=== PATIENT | male | born 1955 | race African-American/Black ===

== ENCOUNTER 2017-07-01 05:48 | Emergency (ER) | payer MEDICARE, MEDICAID ==
[2017-07-01 07:54] LABS: Bilirubin Negative (Negative); Blood, Urine Large (Negative); Glucose, Urine (Dipstick) Negative (Negative); Leukocyte Trace (Negative); Nitrite Negative (Negative); Protein, Urine (Dipstick) 100 mg/dL (Neg-Trace); Urobilinogen 0.2 mg/dL (0.2-1.0)
[2017-07-01 07:56] LABS: Clarity Turbid (Clear)
[2017-07-01 08:15] LABS: RBC/HPF GREATER THAN 50-TNTC HPF (0-3); Squamous Epithelial 0-3 HPF (0-3); Yeast-All Forms None Seen HPF (None Seen)
[2017-07-01 08:16] LABS: Bacteria/HPF None Seen HPF (None Seen); Hyaline Casts/LPF 0-3 HYALINE CAST LPF (0-3 Hyaline)
== END 2017-07-01 09:28 | disposition home or self-care (01) ==
LOC: ERS 05:48
DX: R31.9 Hematuria, unspecified (principal); Z46.6 Encounter for fitting and adjustment of urinary device; I69.991 Dysphagia following unspecified cerebrovascular disease; R13.10 Dysphagia, unspecified; I10 Essential (primary) hypertension; E78.5 Hyperlipidemia, unspecified; K21.9 Gastro-esophageal reflux disease without esophagitis; F32.9 Major depressive disorder, single episode, unspecified; Z79.899 Other long term (current) drug therapy
CPT/HCPCS: 51702; 81003; 81015; 87077; 87086; 87186

== ENCOUNTER 2018-07-07 07:08 | Observation (INO) | payer MEDICARE, MEDICAID ==
[2018-07-07] MEDS ORDERED: diphenhydrAMINE 50 MG/ML VIAL ONE (07:25)
[2018-07-07] MEDS ORDERED: Famotidine/PF 20 mg/2ml Vial ONE (07:25)
[2018-07-07] MEDS ORDERED: methylPREDNISolone Sod Succ/PF 125 MG/2 ML VIAL ONE (07:25)
[2018-07-07 07:38] LABS: #Basophils 0.1 thou/uL (0.0-0.2); #Eosinphils 0.3 thou/uL (0.0-0.7); #Lymphocytes 2.1 thou/uL (1.20-3.40); #Monocytes 0.8 thou/uL (0.11-0.59); #Neutrophils 10.2 thou/uL (1.40-6.50); %Basophils 0.4 % (0.0-1.0); %Eosinophils 2.5 % (0.0-10.0); %Lymphocytes 15.9 % (21.0-51.0); %Monocytes 5.7 % (0.0-10.0); %Neutrophils 75.6 % (42.0-75.0); Hemoglobin 12.5 g/dL (14.0-18.0); Mean Corpuscular HGB CONC 32.1 g/dL (32.0-36.0); Mean Corpuscular Hemoglobin 27.9 pg (27.0-31.0); Mean Corpuscular Volume 86.9 fL (78.0-98.0); Mean Platelet Volume 6.2 fL (7.4-10.4); Platelet Count 272 thou/uL (130-400); RBC Distribution Width 12.7 % (11.5-14.5); Red Blood Cell (RBC) Count 4.48 mill/uL (4.70-6.10); White Blood Cell (WBC) Count 13.5 thou/uL (4.8-10.8)
[2018-07-07] MEDS ORDERED: Lidocaine 1% w/Epinephrine 1:100K 20 ML VIAL ONE (07:46)
[2018-07-07] MEDS ORDERED: Sodium Chloride For Inhalation 0.9% 3 ML NEB ONE (07:53)
[2018-07-07 07:59] LABS: Actual Bicarbonate (HCO3a) 25.7 mEq/L (22-28); Analyzer IN Cardio ER; Base Excess (BEa) 0.5 mEq/L (-2.0 to +3.0); CO2 Tension 43.8 mmHg (35.0-45.0); Calcium, Ionized 1.11 mmol/L (1.12-1.30); Carboxyhemoglobin (COHb) 0.2 gm% (0.0-3.0); Hemoglobin (Hb) 12.8 g/dL (14.0-18.0); O2 Tension (PaO2) 146.6 mmHg (> 80.0); Potassium - ABG Lab 3.92 mmol/L (3.70-5.30); pH, Arterial 7.39 (7.35-7.45)
[2018-07-07 07:59] LABS: ALT (SGPT) 10 U/L (8-55); AST (SGOT) 12 U/L (5-34); Albumin 4.2 g/dL (3.4-4.8); Alkaline Phosphatase 73 U/L (40-150); Anion Gap 14 mmol/L (10-20); BUN (Urea Nitrogen) 12 mg/dL (8.4-25.7); Bilirubin, Total 0.7 mg/dL (0.2-1.2); Calc. Creatinine Clearance 0 mL/min (70-130); Calcium 9.4 mg/dL (7.8-10.44); Carbon Dioxide 26 mmol/L (23-31); Chloride 103 mmol/L (98-107); Estimated GFR-MDRD Greater than 90; Globulin 3.7 g/dL (2.4-3.5); Glucose 93 mg/dL (80-115); Potassium 4.1 mmol/L (3.5-5.1); Protein, Total 7.9 g/dL (5.8-8.1); Sodium 139 mmol/L (136-145)
[2018-07-07 08:01] LABS: Puncture Site LBA
--- NOTE | 2018-07-07 08:45 | RAD ---
2 views of the soft tissues of the neck INDICATION: Abnormal noises made by the patient this morning without recent illness or exposure; hist ory of right-sided deficits following the stroke; nonverbal patient COMPARISON: Chest radiograph dated April 03, 2017 FINDINGS: Prevertebral soft tissues are within normal limits. There is bulky anterior marginal osteop hytes off of C5-6 and C6-7. There is prominent gaseous distention of the nasopharynx, oral cavity, hypopharynx and trachea. The patient is rotated on the AP view slightly limiting the exam. Visualized aspects of the subglottic trachea appear within normal limits. Lung apices are clear. IMPRESSION: Gaseous distention of the upper airway without additional abnormality.
--- NOTE | 2018-07-07 10:12 | CT ---
CT PULMONARY ANGIOGRAM WITH IV CONTRAST AND 3D POST PROCESSING: HISTORY: Chest pain. FINDINGS: No filling defects are seen in the central pulmonary arterial vasculature to suggest central pulmonar y embolism. Peripheral branches cannot be satisfactorily evaluated due to motion artifact. The thor acic aorta is opacified without aneurysmal dilation or dissection. No pleural or pericardial effusio ns are identified. No pneumothoraces, lobar consolidation, or lung masses are seen. There is a calc ified granuloma of the left lower lobe. There are degenerative changes in the spine. Upper abdomina l tomograms demonstrate cysts in the kidneys and cholelithiasis. Exam is somewhat limited due to mot ion artifact. IMPRESSION: 1. No CT evidence of central pulmonary embolism. 2. Cholelithiasis. 3. Bilateral renal cysts. POS: SHERRY
--- NOTE | 2018-07-07 11:18 | ULT ---
EXAM: Right lower extremity venous Doppler US HISTORY: Right lower extremity edema and pain FINDINGS: Grayscale, color-flow, Doppler evaluation, spectral analysis of the right lower extremity venous stru ctures is performed with 2-D imaging. The left common femoral, superficial femoral, popliteal, posterior tibial, proximal greater saphenous and profunda femoral veins are imaged. There is normal luminal compressibility, flow, and augmentation the visualized deep venous structures of the right lower extremity. Incidental note is made of prominent lymph nodes in the right groin. IMPRESSION: No evidence of a deep vein thrombosis in the right lower extremity.
--- NOTE | 2018-07-07 12:10 | PDOC.FPRHP ---
- History of Present Illness Chief Complaint: respiratory distress History of Present Illness: Mr. Fish presents from the [facility] for evaluation after he was making louder "croaking" sounds this morning. He is aphasic, the following history is obtained from medical records and staff. Earlier this morning he was found to have increased breath sounds, reported to staff that he does this when he is in pain. She was able to communicate with him and reported his pain to be in his calf and chest. Otherwise she reports him to be at baseline, focal neurologic deficits and aphasia are residual from CVA in the . Swelling initially reported to tongue, face, lips, eyelids. resolved on our examination. ED Course: CBC, CMP, BNP, trop, ddimer, ABG Rt leg US, CTA, neck Xray racepi, solumedrol, famotidine, benadryl - Allergies/Adverse Reactions Allergies Allergy/AdvReac Type Severity Reaction Status Date / Time IGOR Inhibitors Allergy Severe Swollen Verified 07/07/18 17:47 Lips sulfamethoxazole Allergy Unknown Verified 07/07/18 15:30 [From Bactrim] trimethoprim [From Bactrim] Allergy Unknown Verified 07/07/18 15:30 - Home Medications Medication Instructions Recorded Confirmed Type Acetaminophen [Tylenol Arthritis] 2 tablet PO BID 04/03/17 04/03/17 History Acetaminophen [Tylenol Regular 650 mg PO Q6HR PRN 04/03/17 04/03/17 History Strength] Amlodipine [Norvasc] 10 mg PO DAILY 04/03/17 04/03/17 History Baclofen [Lioresal] 10 mg PO TID 04/03/17 04/03/17 History Bisacodyl [Dulcolax] 10 mg DC DAILY PRN 04/03/17 04/03/17 History Clopidogrel Bisulfate [Plavix] 75 mg PO DAILY 04/03/17 04/03/17 History Furosemide [Lasix] 40 mg PO DAILY 04/03/17 04/03/17 History Ipratropium/Albuterol Sulfate 3 ml NEB Q4HR PRN 04/03/17 04/03/17 History [DuoNeb] Lactobacillus Combination No.4 1 capsule PO DAILY 04/03/17 04/03/17 History [Probiotic] Lisinopril [Prinivil] 20 mg PO DAILY 04/03/17 04/03/17 History Loperamide HCl [Loperamide] 2 mg PO PRN PRN 04/03/17 04/03/17 History Magnesium Hydroxide [Milk of 400 mg PO DAILY 04/03/17 04/03/17 History Magnesia] Magnesium Hydroxide [Milk of 400 mg PO DAILY PRN 04/03/17 04/03/17 History Magnesia] Multivit, Therapeutic [Theragran] 1 tab PO DAILY 04/03/17 04/03/17 History Ondansetron [Zofran ODT] 4 mg PO Q4HR PRN 04/03/17 04/03/17 History Potassium Chloride 20 meq PO DAILY 04/03/17 04/03/17 History Sertraline HCl [Zoloft] 25 mg PO DAILY 04/03/17 04/03/17 History Docusate Calcium [Surfak] 480 mg PO BID cap 04/05/17 Rx Famotidine [Pepcid] 20 mg PO BID tab 04/05/17 Rx Nitrofurantoin Macrocrystal 100 mg PO BID #14 cap 04/05/17 Rx [Macrodantin] Potassium Chloride 20 meq PO DAILY udcup 04/05/17 Rx Sertraline HCl [Zoloft] 25 mg PO DAILY tab 04/05/17 Rx - History PMHx: prior CVA, HTN, BPH, HLD, GERD PSHx: none FHx: none Social: full care at [place] - Review of Systems ROS unobtainable: due to mental status - Vital signs BP: 141/118, Pulse: 109, Resp: 34, Pain: utr, O2 sat: 93 on Room Air, - Physical Exam Constitutional: NAD HEENT: normocephalic and atraumatic, conjunctiva clear, normal nasal mucosa, MMM , oropharynx clear Neck: supple, trachea midline Chest: no lesions Heart: normal S1/S2, no murmurs/rubs/gallops, pulses present, no edema -Heart: tachycardic on exam Lungs: CTAB, no respiratory distress, good air movement, no rales/rhonchi -Lungs: transmitted upper airway sounds Abdomen: soft, non-tender, bowel sounds present, no masses/distention Musculoskeletal: normal structure -Neurological: baseline deficits Skin: no rash/lesions, good turgor Heme/Lymphatic: no unusual bruising or bleeding Psychiatric: normal mood and affect FMR H&P: Results - Labs Result Diagrams: 07/07/18 07:28 07/07/18 07:28 Lab results: WBC 13.5 thou/uL (4.8-10.8) H 07/07/18 07:28 Hgb 12.5 g/dL (14.0-18.0) L 07/07/18 07:28 Hct 38.9 % (42.0-52.0) L 07/07/18 07:28 MCV 86.9 fL (78.0-98.0) 07/07/18 07:28 Plt Count 272 thou/uL (130-400) 07/07/18 07:28 Neutrophils % 75.6 % (42.0-75.0) H 07/07/18 07:28 ABG pH 7.39 (7.35-7.45) 07/07/18 07:59 ABG pCO2 43.8 mmHg (35.0-45.0) 07/07/18 07:59 ABG pO2 146.6 mmHg (> 80.0) H 07/07/18 07:59 Sodium 139 mmol/L (136-145) 07/07/18 07:28 Potassium 4.1 mmol/L (3.5-5.1) 07/07/18 07:28 Chloride 103 mmol/L (98-107) 07/07/18 07:28 Carbon Dioxide 26 mmol/L (23-31) 07/07/18 07:28 BUN 12 mg/dL (8.4-25.7) 07/07/18 07:28 Creatinine 0.86 mg/dL (0.7-1.3) 07/07/18 07:28 Glucose 93 mg/dL (80-115) 07/07/18 07:28 Calcium 9.4 mg/dL (7.8-10.44) 07/07/18 07:28 Total Bilirubin 0.7 mg/dL (0.2-1.2) 07/07/18 07:28 AST 12 U/L (5-34) 07/07/18 07:28 ALT 10 U/L (8-55) 07/07/18 07:28 Alkaline Phosphatase 73 U/L (40-150) 07/07/18 07:28 B-Natriuretic Peptide 18.3 pg/mL (0-100) 07/07/18 07:28 Serum Total Protein 7.9 g/dL (5.8-8.1) 07/07/18 07:28 Albumin 4.2 g/dL (3.4-4.8) 07/07/18 07:28 FMR H&P: A/P - Problem List (1) History of CVA (cerebrovascular accident) Current Visit: Yes Status: Acute Code(s): Z86.73 - PRSNL HX OF TIA (TIA), AND CEREB INFRC W/O RESID DEFICITS (2) HTN (hypertension) Current Visit: Yes Status: Acute Code(s): I10 - ESSENTIAL (PRIMARY) HYPERTENSION (3) GERD (gastroesophageal reflux disease) Current Visit: Yes Status: Acute Code(s): K21.9 - GASTRO-ESOPHAGEAL REFLUX DISEASE WITHOUT ESOPHAGITIS (4) BPH (benign prostatic hyperplasia) Current Visit: Yes Status: Acute Code(s): N40.0 - BENIGN PROSTATIC HYPERPLASIA WITHOUT LOWER URINRY TRACT SYMP (5) Leukocytosis Current Visit: Yes Status: Acute Code(s): D72.829 - ELEVATED WHITE BLOOD CELL COUNT, UNSPECIFIED (6) Angioedema Current Visit: Yes Status: Acute Code(s): T78.3XXA - ANGIONEUROTIC EDEMA, INITIAL ENCOUNTER - Plan Angioedema - facial swelling, hypoxic episodex1, airway evaluated and cleared by anesthesia /ent in ED - likely 2/2 to IGOR-I: DC, begin ARB - much improved from initial evaluation in ED and H2, epi, steroid therapy - will admit for continuous O2/tele monitoring overnight Hx of CVA - at baseline per - NPO pending bedside swallow HTN - DC lisinopril, start losartan BPH - continue home meds GERD - continue home meds code: full ppx: lovenox pcp: Sampson Dispo: observe overnight, likely DC tomorrow FMR H&P: Upper Level - Pertinent history 63M presents for 1 day of "croaking". Patient is non verbal at baseline. History was obtain by discussion with ER physician, patient's daughter and [facility] staff notes. Patient at baseline has a large tongue and due to stroke, often has his tongue hanging out. This morning, nursing staff state that patient was making croaking side. They were concern he was having difficulty breathing and had patient sent to ER for evaluation. In the ER. he was found to be BP: 141/118, Pulse: 109, Resp: 34. He was given racemic epi, 125 mg solumedrol, 1L NS, benedryl 25 mg, famotidine 20. Anesthesia was consulted and stated he did not have angioedema. ENT was consulted in ER, where they used scope to evaluate and found no obstruction. Pertinent lab includes mild leukocytosis with left shift. There was elevated d- dimer at 14, but there was no comparison. CTA found no central PE, though there were some motion artifact that limit periphery evaluation. Xray of neck did not find obstruction. Doppler found no DVT. EKG significant for sinus tach. Gen: Eyes open, non verbal. HEENT: Lip and tongue does not appear edematous. Snoring present. Moist mucosal membrane. Trachea midline. Resp: CTA, non labored breathing, O2 sat of 97%. Abd: Large with pannus, no lesions or masses Derm: No rash, hives seen. Ext: Bilat edema : Suprapubic catheter, clear yellow urine seen in bag. A/P 1. Concern for angioedema vs allergic reaction - Possible angioedema based on presenting picture. However, no longer appear to have any angioedema and specialist do not think there is any obstruction. Is on lisinopril. Will stop lisinopril, switch to losartan. - Consider allergic reaction, though unlikely with no derm finding or GI finding. Resolved without any IM/IV epi given. 2. Elevated d-dimer - Patient originally had elevated pulse and respiration rate. That has since resolved and patient is on room air with appropriate O2 saturation. D-dimer was elevated but CTA was negative for central PE. Periphery was limited by motion artifact. No DVT on LE doppler. Doubt significant PE as there's no central vasculature involvement, patient symptom resolved without intervention. 3. Leukocytosis - Left shift. No fever noted or another sign of infection. No previous baseline to compare to. Will monitor overnight, further testing if it appear that this luekocytosis represent an occult infection. - Plan Date/Time: 07/07/18 1206 I, [Noel Gunderson], have evaluated this patient and agree with findings/plan as outlined by summer internship resident. Pertinent changes/additions are listed here. Addendum - Attending - Attending Attestation Date/Time: 07/07/18 191 I personally evaluated the patient and discussed the management with Dr. Gonzáles/ Jalyn. I agree with the History, Examination, Assessment and Plan documented above with any addition or exceptions noted below. Patient here with baseline aphasia and occasional "grunting" noises per caregiver who developed facial and tongue swelling this morning with increased respiratory effort. He has been taking Lisinopril for years. Caregiver otherwise reports patient at baseline function. On exam he is noted to have some audible grunting, off and on, that has been present for years per caregiver. Mild lip swelling. He is noted to have contractures that is chronic from his old CVA. Vital signs stable with exception of mild tachycardia. Labs show mild leukocytosis but otherwise at baseline. O2 sats normal. He is being admitted for allergic reaction versus angioedema, possible ACEi mediated. He apparently had airway clearance in ED by anesthesia/ENT. Given racemic epinephrine, H2 gail, Benadryl, Solumedrol. Continue to monitor tele strip and respiratory status overnight. Monitor O2 sats closely. Anticipate discharge tomorrow with course of prednisone and discontinuation of ACEi if doing well overnight and in AM.
[2018-07-07 12:43] LABS: Troponin I Less than 0.010 ng/mL (< 0.028)
[2018-07-07] MEDS ORDERED: Acetaminophen 325 MG TAB PO PRN (13:46)
[2018-07-07] MEDS ORDERED: Ondansetron PF 4 MG/2 ML Vial IVP PRN (14:00)
[2018-07-07] MEDS ORDERED: Ondansetron ODT 4 MG TAB PO PRN (14:00)
[2018-07-07] MEDS ORDERED: Acetaminophen 650 MG Suppository PR PRN (14:00)
[2018-07-07] MEDS ORDERED: ISOVUE-370 76%-LOCM 1 ML ONE (14:17)
[2018-07-07 15:47] VITALS: BMI 34.2
[2018-07-07 16:06] LABS: Troponin I Less than 0.010 ng/mL (< 0.028)
[2018-07-08 05:18] LABS: #Eosinphils 0.1 thou/uL (0.0-0.7); #Lymphocytes 2.2 thou/uL (1.20-3.40); #Monocytes 1.2 thou/uL (0.11-0.59); #Neutrophils 11.8 thou/uL (1.40-6.50); %Basophils 0.3 % (0.0-1.0); %Eosinophils 0.5 % (0.0-10.0); %Lymphocytes 14.5 % (21.0-51.0); %Monocytes 7.9 % (0.0-10.0); %Neutrophils 76.8 % (42.0-75.0); Hemoglobin 10.8 g/dL (14.0-18.0); Mean Corpuscular HGB CONC 31.6 g/dL (32.0-36.0); Mean Corpuscular Hemoglobin 27.7 pg (27.0-31.0); Mean Corpuscular Volume 87.5 fL (78.0-98.0); Mean Platelet Volume 6.8 fL (7.4-10.4); Platelet Count 261 thou/uL (130-400); RBC Distribution Width 12.9 % (11.5-14.5); Red Blood Cell (RBC) Count 3.89 mill/uL (4.70-6.10); White Blood Cell (WBC) Count 15.4 thou/uL (4.8-10.8)
--- NOTE | 2018-07-08 06:44 | PDOC.FM ---
- Subjective Subjective: pt resting comfortably in bed, no distress or acute events overnight. - Objective Vital Signs & Weight: Vital Signs (12 hours) Temp Pulse Resp BP Pulse Ox 07/08/18 04:00 97.5 F L 98 18 173/90 H 92 L 07/08/18 00:00 98.8 F 101 H 16 149/80 H 93 L 07/07/18 19:52 98.3 F 111 H 18 169/95 H 96 Weight Weight 98.974 kg I&O: 07/06/18 07/07/18 07/08/18 06:59 06:59 06:59 Intake Total 300 Output Total 1270 Balance -970 Result Diagrams: 07/08/18 04:51 07/07/18 07:28 Phys Exam - Physical Examination Constitutional: NAD HEENT: moist MMs Neck: full ROM Gastrointestinal: soft, non-tender, no distention Musculoskeletal: pulses present baseline deficits Psychiatric: normal affect Skin: no rash Dx/Plan (1) History of CVA (cerebrovascular accident) Code(s): Z86.73 - PRSNL HX OF TIA (TIA), AND CEREB INFRC W/O RESID DEFICITS Status: Acute (2) HTN (hypertension) Code(s): I10 - ESSENTIAL (PRIMARY) HYPERTENSION Status: Acute (3) GERD (gastroesophageal reflux disease) Code(s): K21.9 - GASTRO-ESOPHAGEAL REFLUX DISEASE WITHOUT ESOPHAGITIS Status: Acute (4) BPH (benign prostatic hyperplasia) Code(s): N40.0 - BENIGN PROSTATIC HYPERPLASIA WITHOUT LOWER URINRY TRACT SYMP Status: Acute (5) Leukocytosis Code(s): D72.829 - ELEVATED WHITE BLOOD CELL COUNT, UNSPECIFIED Status: Acute (6) Angioedema Code(s): T78.3XXA - ANGIONEUROTIC EDEMA, INITIAL ENCOUNTER Status: Acute - Plan Plan: Angioedema - facial swelling, hypoxic episodex1, airway evaluated and cleared by anesthesia /ent in ED - likely 2/2 to IGOR-I: DC, begin ARB - much improved from initial evaluation in ED and H2, epi, steroid therapy - resolved Leukocytosis - likely related to steroid dose in ED - afebrile, VSS, no concern for acute infection Hx of CVA - at baseline per - NPO pending bedside swallow HTN - DC lisinopril, start losartan BPH - continue home meds GERD - continue home meds code: full ppx: lovenox pcp: Sampson Dispo: DC later today if asymptomatic
[2018-07-08] MEDS ORDERED: Enoxaparin Sodium 40 MG/0.4 ML SYRINGE SC SCH (09:00)
[2018-07-08] MEDS ORDERED: Losartan 25 MG TAB PO SCH (09:00)
--- NOTE | 2018-07-08 11:37 | PRG ---
DATE OF SERVICE: 07/08/2018 Mr. Fish was brought in from [facility] for making "croaking sounds." He was seen in the ER by the ENT staff and Anesthesia who found no evidence of laryngeal edema or angioedema. He was admitted for observation. This morning, he is awake and alert. He is in no distress. Likely be ready to discharge this afternoon. Job ID: [id number]
[2018-07-08 12:04] VITALS: BP 150/85; TEMP 98.3
--- NOTE | 2018-07-09 04:33 | DIS ---
DATE OF ADMISSION: 07/07/2018 DATE OF DISCHARGE: 07/08/2018 ADMITTING ATTENDING: Sumeet Paul MD RESIDENT: Jose Martin Gonzáles DO CONSULTS: None. PROCEDURES: None. IMAGING: He received soft tissue of neck and a chest and thorax CTA, both of which revealed no acute abnormality or infection or pulmonary embolism. Vascular ultrasound of lower extremities again revealed no DVT or other embolic disease DISCHARGE MEDICATIONS: 1. Baclofen 10 mg p.o. t.i.d. 2. Tylenol 650 mg p.o. q.6 hours p.r.n. 3. Dulcolax 10 mg p.o. daily p.r.n. 4. Plavix 75 mg p.o. daily. 5. Amlodipine 10 mg p.o. daily. 6. Multivitamin one tab p.o. daily. 7. Milk of Mag 400 mg p.o. daily. 8. Lasix 40 mg p.o. daily. 9. Docusate 480 mg p.o. b.i.d. 10. Zoloft 25 mg p.o. daily. 11. Atorvastatin 40 mg p.o. daily. 12. Losartan 25 mg p.o. daily. DISCONTINUED MEDICATIONS: Lisinopril 20 mg p.o. daily. PRIMARY DIAGNOSIS: Angioedema, likely secondary to lisinopril. SECONDARY DIAGNOSES: 1. Leukocytosis. 2. History of cerebrovascular accident. 3. Hypertension. 4. BPH. 5. Gastroesophageal reflux disease. HISTORY OF PRESENT ILLNESS/HOSPITAL COURSE: Mr. Fish is a 63-year-old male who presented to the emergency department from the senior living for increased vocalizations and facial and tongue swelling, evaluated in the emergency department by ENT and Anesthesia, and was found to have a clear non-obstructed airway. Imaging revealed the same. The patient received antiallergic medications including epinephrine and steroids, responded well, in the ER, facial swelling improved. The patient had one hypoxic event in the ER, but was otherwise stable. Decided to observe overnight, had no hypoxic events overnight. Vital signs remained stable. Laboratory studies were within normal limits. It was determined that the patient most likely suffered from angioedema secondary to lisinopril. This medication was discontinued and patient was deemed stable for discharge back to senior living. DISCHARGE INSTRUCTIONS: Location: correction. Activity: As tolerated. Diet: Heart healthy, low-sodium. Followup: Follow up with PCP, Dr. Braden in the next 3 to 4 days. Job ID: [id number] [facility]
== END 2018-07-08 15:17 | disposition home or self-care (01) ==
LOC: ERS 07:08 → ERHOLD 11:40 → 2SE 15:18
PROVIDERS: ADMIT Family Medicine; ATTEND Family Medicine
DX: T78.3XXA Angioneurotic edema, initial encounter (principal); D72.829 Elevated white blood cell count, unspecified; I10 Essential (primary) hypertension; N40.1 Benign prostatic hyperplasia with lower urinary tract symptoms; R33.8 Other retention of urine; K21.9 Gastro-esophageal reflux disease without esophagitis; E78.5 Hyperlipidemia, unspecified; R79.1 Abnormal coagulation profile; K80.20 Calculus of gallbladder without cholecystitis without obstruction; N28.1 Cyst of kidney, acquired; E87.6 Hypokalemia; F32.9 Major depressive disorder, single episode, unspecified; G47.00 Insomnia, unspecified; Z86.73 Personal history of transient ischemic attack (TIA), and cerebral infarction without residual deficits; Z88.2 Allergy status to sulfonamides; Z88.8 Allergy status to other drugs, medicaments and biological substances; Z79.82 Long term (current) use of aspirin; Z79.01 Long term (current) use of anticoagulants; Z79.899 Other long term (current) drug therapy
CPT/HCPCS: 70360; 71275; 80053; 82805; 83880; 84484 ×2; 85025 ×2; 85379; 93005; 93971; 94640; 96361; 96372; 96374; 96375; 99285; G0378 ×2; 36415; J1200; J1650; J2001; J2930; Q9966; S0028

== ENCOUNTER 2018-07-11 16:17 | Inpatient (IN) | payer MEDICARE, MEDICAID ==
[2018-07-11 17:10] LABS: #Basophils 0.1 thou/uL (0.0-0.2); #Eosinphils 0.2 thou/uL (0.0-0.7); #Lymphocytes 2.7 thou/uL (1.20-3.40); #Monocytes 1.4 thou/uL (0.11-0.59); #Neutrophils 9.3 thou/uL (1.40-6.50); %Basophils 0.6 % (0.0-1.0); %Eosinophils 1.8 % (0.0-10.0); %Lymphocytes 19.8 % (21.0-51.0); %Monocytes 10.2 % (0.0-10.0); %Neutrophils 67.6 % (42.0-75.0); Hemoglobin 12.1 g/dL (14.0-18.0); Mean Corpuscular HGB CONC 32.4 g/dL (32.0-36.0); Mean Corpuscular Hemoglobin 28.4 pg (27.0-31.0); Mean Corpuscular Volume 87.8 fL (78.0-98.0); Mean Platelet Volume 6.8 fL (7.4-10.4); Platelet Count 288 thou/uL (130-400); RBC Distribution Width 12.5 % (11.5-14.5); Red Blood Cell (RBC) Count 4.26 mill/uL (4.70-6.10); White Blood Cell (WBC) Count 13.7 thou/uL (4.8-10.8)
[2018-07-11 17:17] LABS: Prothrombin Time 13.2 SEC (12.0-14.7)
[2018-07-11 17:29] LABS: ALT (SGPT) 13 U/L (8-55); AST (SGOT) 14 U/L (5-34); Albumin 4.1 g/dL (3.4-4.8); Alkaline Phosphatase 67 U/L (40-150); Anion Gap 18 mmol/L (10-20); BUN (Urea Nitrogen) 18 mg/dL (8.4-25.7); Bilirubin, Total 0.6 mg/dL (0.2-1.2); Calc. Creatinine Clearance 0 mL/min (70-130); Calcium 9.4 mg/dL (7.8-10.44); Carbon Dioxide 24 mmol/L (23-31); Chloride 103 mmol/L (98-107); Estimated GFR-MDRD Greater than 90; Glucose 104 mg/dL (80-115); Potassium 4.5 mmol/L (3.5-5.1); Protein, Total 8.1 g/dL (5.8-8.1); Sodium 140 mmol/L (136-145)
[2018-07-11 17:29] LABS: Clarity CLEAR (Clear); Specific Gravity, Urine 1.015 (1.005-1.030)
[2018-07-11 17:30] LABS: Leukocyte Small (Negative); Nitrite Positive (Negative); pH, Urine 8.5 (5.0-9.0)
[2018-07-11 17:31] LABS: Bilirubin Negative (Negative); Blood, Urine Moderate (Negative); Glucose, Urine (Dipstick) Negative (Negative); Other Microscopic Description Less than 2 mL rec'd; Protein, Urine (Dipstick) 100 mg/dL (Neg-Trace)
--- NOTE | 2018-07-11 17:31 | RAD ---
2 views right leg. HISTORY: Trauma with pain. AP and lateral views right tibia and fibula demonstrates no evidence of right tibial or fibular fract ures, subluxations or bony lesions. IMPRESSION: normal AP and lateral views right tibia and fibula
--- NOTE | 2018-07-11 17:32 | RAD ---
2 views right hip. HISTORY: Fall with pain. AP and lateral views right hip demonstrates a moderately displaced right proximal femoral fracture. T his appears to be a intertrochanteric type fracture. Some impaction seen of the proximal distal fracture fragments. IMPRESSION: right proximal femoral fracture.
--- NOTE | 2018-07-11 17:33 | RAD ---
AP view pelvis. HISTORY: Fall. AP view pelvis demonstrates a proximal right femoral intertrochanteric fracture. IMPRESSION: See above
--- NOTE | 2018-07-11 17:46 | RAD ---
AP view chest. HISTORY: Trauma. AP view chest obtained on 07/11/2018. Comparison made to previous exam from 04/03/2017. The lungs are well aerated. No evidence of active intrathoracic disease seen. No evidence of effusion s, pneumonia or pneumothorax seen. IMPRESSION: unremarkable AP view chest.
[2018-07-11] MEDS ORDERED: Ondansetron PF 4 MG/2 ML Vial IVP PRN (18:25)
[2018-07-11] MEDS ORDERED: cefTRIAXone\\ROCEPHIN 1 GM VIAL ONE (18:25)
[2018-07-11] MEDS ORDERED: hydrALAZINE 20 MG/ML VIAL SLOW IVP PRN (18:25)
[2018-07-11] MEDS ORDERED: Dextrose 50% Abboject 50 ML SYRINGE SLOW IVP PRN (18:25)
[2018-07-11] MEDS ORDERED: Morphine 2 MG/ML SYRINGE SLOW IVP PRN (18:25)
[2018-07-11] MEDS ORDERED: Morphine 4 MG/ML VIAL ONE (18:25)
[2018-07-11] MEDS ORDERED: Morphine 4 MG/ML VIAL SLOW IVP PRN (18:25)
[2018-07-11] MEDS ORDERED: Sodium Chloride 0.9% 100 ML ONE (18:25)
[2018-07-11] MEDS ORDERED: Dextrose 5% in Water 1,000 ML IV PRN (18:25)
[2018-07-11] MEDS ORDERED: Ondansetron ODT 4 MG TAB PO PRN (18:25)
[2018-07-11] MEDS ORDERED: traMADol HCl 50 MG TAB PO PRN (18:30)
[2018-07-11] MEDS ORDERED: traMADol HCl 50 MG TAB PO SCH (18:30)
[2018-07-11] MEDS ORDERED: Acetaminophen 500 MG TAB PO SCH (18:30)
[2018-07-11] MEDS ORDERED: Ibuprofen 600 MG TAB PO SCH (19:00)
[2018-07-11 20:43] VITALS: BMI 29.2
[2018-07-11] MEDS: Famotidine/PF 20 mg/2ml Vial SLOW IVP SCH (20:50)
[2018-07-11] MEDS: Sodium Chloride 0.9% 1,000 ML IV SCH (21:39)
[2018-07-11] MEDS: Senokot S 8.6-50 MG TAB PO SCH (21:41)
--- NOTE | 2018-07-11 22:24 | HP ---
ATTENDING TRAUMA SURGEON: Dr. Francis. CONSULTS: Orthopedic Surgery, Dr. Turner. HISTORY OF PRESENT ILLNESS: This is a 63-year-old gentleman who presented to the emergency room via EMS from [facility] where the patient lives. The patient complains of right hip pain. According to the , the patient had a controlled fall several days ago at the group home. The patient with significant past medical history of CVA with right-sided deficits and the patient has been nonambulatory for 20 years. The patient also has difficulty speaking from his prior stroke. states that she is able to communicate and understand him well. PAST MEDICAL HISTORY: CVA with right-sided deficit, dysphagia, history of C diff, BPH, hypertension, hyperlipidemia, constipation, GERD, hypokalemia, urinary retention. PAST SURGICAL HISTORY: Inguinal hernia repair, brain aneurysm surgery in 1991, suprapubic catheter placement one year ago. SOCIAL HISTORY: The patient lives in the group home and nonambulatory. ALLERGIES: IGOR INHIBITORS, BACTRIM, SULFA. CURRENT MEDICATIONS: 1. Milk of magnesia. 2. Norvasc 10 mg once a day. 3. Plavix 75 mg once a day. 4. Surfak 250 mg 2 times a day. 5. Zoloft 25 mg once a day. 6. Tylenol Arthritis 650 mg 2 times a day. 7. Flomax 0.4 mg at bedtime. 8. Oxybutynin chloride 5 mg once a day. 9. Potassium chloride 20 mEq once a day after meal. PHYSICAL EXAMINATION: VITAL SIGNS: Blood pressure 143/96, heart rate 126, SpO2 93% on room air, temperature 98.2. GENERAL: The patient is awake and alert, able to follow simple commands, the patient with aphasia, the patient with grimacing, appears in moderate distress due to right hip pain. HEENT: Head is atraumatic and normocephalic. Mucous membranes are moist. NECK: With normal range of motion, trachea midline, no JVD. RESPIRATORY: Regular rate and rhythm, chest is symmetrical, equal bilateral breath sounds, no wheezing, rales, or rhonchi. CARDIOVASCULAR: Regular rate and rhythm. No murmur, no pedal edema. ABDOMEN: Soft, nontender, nondistended, active bowel sounds. EXTREMITIES: Tender to palpation right hip. Positive distal pulses, limited movement to right upper and lower extremities. LABORATORY DATA: WBC 13.7, RBC 4.26, hemoglobin 12.1, hematocrit 37.3, platelets 288. PTT 13.2, INR 1.0, aPTT 30.0. Sodium 140, potassium 4.5 chloride 103, BUN 18, creatinine 0.88, estimated GFR greater than 90, glucose 104, calcium 9.4, AST 14 , ALT 13. Urinalysis, positive for urine protein, moderate blood, positive nitrites, small leukocyte esterase, the patient treated with IV Rocephin in the emergency room. DIAGNOSTICS: 1. Hip x-ray, right proximal femoral fracture. 2. Pelvis x-ray, proximal right femoral intertrochanteric fracture. 3. Tib-fib x-ray, normal x-ray, no fractures or subluxations. 4. Chest x-ray, unremarkable. IMPRESSION: 1. Right proximal femoral intertrochanteric fracture. 2. Acute traumatic pain. 3. Urinary tract infection, on admission. PLAN: We will admit the patient to the surgical ortho floor, pending orthopedics plan. We will keep the patient n.p.o. for possible surgical repair. We will place the patient on a pain regimen. The plan has been discussed with the patient and the patient's , who agree. The plan has also been discussed with Dr. Francis, who agrees with the plan. Job ID: [id number] [id number]
[2018-07-12] MEDS: traMADol HCl 50 MG TAB PO SCH ×5 (00:22→23:47)
[2018-07-12] MEDS: Acetaminophen 500 MG TAB PO SCH ×5 (00:22→23:49)
--- NOTE | 2018-07-12 01:50 | CON ---
DATE OF CONSULTATION: CHIEF COMPLAINT: Right hip pain. HISTORY OF PRESENT ILLNESS: Mr. Fish is a 63-year-old male who has a history of severe stroke many years ago. The patient is essentially aphasic. He lives in a nursing facility. He is , however, his is not currently with him in the hospital, so history is difficult. He presented today to the emergency department by EMS because he was expressing pain. X-rays have demonstrated a right femoral neck fracture. The patient is nonambulatory per his chart history. He is resting comfortably. He has been admitted to the hospital and is resting in the surgical floor. He cannot report history of the events of the accident. PAST MEDICAL HISTORY: Per chart, the patient has , Clostridium difficile, BPH, hypertension, hyperlipidemia, history of constipation, GERD, hypokalemia, aphasia, urinary retention, psychiatric history of depression and insomnia. ALLERGIES: IGOR INHIBITORS, BACTRIM, SULFA, AND TRIMETHOPRIM. FAMILY MEDICAL HISTORY: Noncontributory. REVIEW OF SYSTEMS: Unable to obtain. PHYSICAL EXAMINATION: VITAL SIGNS: Stable. The patient is normotensive currently, 98% on room air. GENERAL: He is sitting with head of bed elevated. No apparent distress. RESPIRATORY: Breathing comfortably. ABDOMEN: Soft and nondistended. He has a suprapubic catheter in place. MUSCULOSKELETAL: The patient's right lower extremity appears to be somewhat contracted. It is flexed at the hip and knee. He is unable to follow through with a neurologic exam. Foot is warm and well perfused. Left lower extremity does not appear contracted. Upper extremities are atraumatic. IMAGES: X-rays of the right hip show a basicervical femoral neck fracture with possible extension into the intertrochanteric region of the femur. IMPRESSION: A 63-year-old male who is aphasic secondary to cerebrovascular accident, now with right basicervical femoral neck fracture. PLAN: At this point, I think the patient can likely be treated nonoperatively. It is evident that he does not ambulate. However, I do want to confirm this with his tomorrow when she is here. If he is a non-ambulator, we will work on pain control rather than surgical intervention. We will weigh both options with his , however. If he does ambulate or if his strongly wants to go through with surgery for pain relief, we could consider that. For now, he can eat and drink. He should have ongoing medical management of his chronic medical conditions. He can have discharge planning back to the nursing facility if he does not require surgical intervention. Job ID: [id number]
[2018-07-12] MEDS: Sodium Chloride 0.9% 1,000 ML IV SCH ×2 (05:18→10:53)
[2018-07-12] MEDS: Ibuprofen 600 MG TAB PO SCH ×3 (07:03→21:15)
[2018-07-12] MEDS: Senokot S 8.6-50 MG TAB PO SCH ×2 (08:20→20:40)
[2018-07-12] MEDS: Polyethylene Glycol 3350 17 GM Packet PO SCH (08:20)
[2018-07-12] MEDS: Famotidine/PF 20 mg/2ml Vial SLOW IVP SCH ×2 (08:25→20:40)
[2018-07-12] MEDS ORDERED: Ondansetron ODT 4 MG TAB PO PRN (13:11)
[2018-07-12] MEDS ORDERED: Loperamide HCl 2 MG CAP PO PRN (13:11)
[2018-07-12] MEDS ORDERED: Artificial Tears 18 DROP/0.9 ML EA EYE PRN (13:11)
[2018-07-12] MEDS ORDERED: Bisacodyl 10 MG SUPP PR PRN (13:11)
--- NOTE | 2018-07-12 13:53 | PRG ---
DATE OF SERVICE: 07/12/2018 SUBJECTIVE: This is a 63-year-old man who presented from the EMS from [facility] for a right hip fracture, treated nonoperatively. He has history of a CVA with right-sided deficits and is nonambulatory. The patient reports his pain is well controlled. It has been decided to not pursue surgical treatment, but optimize pain control. The patient has been eating and drinking well. He is voiding and stooling well. OBJECTIVE: VITAL SIGNS: Temperature 98.5, pulse 88, respirations 20, O2 97% on 2 L nasal cannula, blood pressure 144/96. GENERAL: The patient is awake and alert. Able to follow simple commands. CARDIOVASCULAR: Regular rate and rhythm. No murmurs, rubs, or gallops. LUNGS: Bilaterally clear to auscultation. Chest rise is symmetrical. No wheezing, rales, or rhonchi. EXTREMITIES: Positive distal pulses. Cap refill less than 2 seconds. Limited movement to right upper and lower extremity. ABDOMEN: Soft, nontender, nondistended with active bowel sounds. LABORATORY DATA: Urine pH 8.5, protein 100, high. Urine blood, moderate, high. Urine nitrate, positive, high. Urine leukocyte esterase, small, high. There are no new diagnostic findings to report. ASSESSMENT: 1. Right proximal femoral intertrochanteric fracture pursuing nonoperative treatment. 2. Acute traumatic pain. 3. Urinary tract infection with suprapubic catheter, likely chronic colonization. PLAN: The patient discussed and decided with Orthopedic Surgery not to pursue surgical treatment at this time. The patient may eat and drink a regular diet. Restart his home medication that may be taken p.o. The patient's suprapubic catheter is chronically colonized, will not start him on antibiotics for urinary tract infection at this time. Rehab screen is pending. We will continue to manage this patient's pain. We will stop IV fluids as the patient is tolerating p.o. intake. The patient was seen and examined with Dr. Jerez during morning rounds. Family was at bedside and was in agreement. Job ID: [id number] [facility]
[2018-07-12] MEDS: Baclofen 10 MG TAB PO SCH ×2 (14:54→20:39)
[2018-07-12] MEDS ORDERED: cefTRIAXone\\ROCEPHIN 1 GM in Sodium Chloride 0.9% 100 ML IVPB SCH (18:00)
[2018-07-12] MEDS ORDERED: Docusate Calcium (SURFAK) 240 MG CAP PO SCH (21:00)
[2018-07-13 01:06] VITALS: TEMP 97.6
[2018-07-13] MEDS: Acetaminophen 500 MG TAB PO SCH ×2 (05:31→12:03)
[2018-07-13] MEDS: Ibuprofen 600 MG TAB PO SCH ×2 (05:31→14:22)
[2018-07-13] MEDS: traMADol HCl 50 MG TAB PO SCH ×2 (05:32→12:03)
[2018-07-13] MEDS: Famotidine/PF 20 mg/2ml Vial SLOW IVP SCH (08:57)
[2018-07-13] MEDS: Baclofen 10 MG TAB PO SCH ×2 (08:58→14:22)
[2018-07-13] MEDS: Polyethylene Glycol 3350 17 GM Packet PO SCH (08:58)
[2018-07-13] MEDS: Senokot S 8.6-50 MG TAB PO SCH (08:58)
[2018-07-13] MEDS ORDERED: Atorvastatin Calcium 40 MG TAB PO SCH (09:00)
[2018-07-13] MEDS ORDERED: Aspirin 81 mg Enteric Coated Tablet PO SCH (09:00)
[2018-07-13] MEDS ORDERED: Furosemide 40 MG TAB PO SCH (09:00)
[2018-07-13] MEDS ORDERED: Clopidogrel Bisulfate 75 MG TAB PO SCH (09:00)
[2018-07-13] MEDS ORDERED: Potassium Chloride 20 MEQ TAB PO SCH (09:00)
[2018-07-13] MEDS ORDERED: Amlodipine 10 MG TAB PO SCH (09:00)
[2018-07-13] MEDS ORDERED: Multivit, Therapeutic 1 TAB PO SCH (09:00)
[2018-07-13] MEDS ORDERED: Oxybutynin 5 MG TAB PO SCH (09:00)
[2018-07-13] MEDS ORDERED: Milk Of Magnesia 30 ML UDCUP PO SCH (09:00)
[2018-07-13 12:47] VITALS: BP 125/78
--- NOTE | 2018-07-14 01:56 | DIS ---
DATE OF ADMISSION: 07/11/2018 DATE OF DISCHARGE: 07/13/2018 This is Joey Valentine PA-C dictating a report for Garcia Jerez DO. ATTENDING PHYSICIAN: Derek Francis MD DISCHARGING PHYSICIAN: Garcia Jerez DO CONSULTING PHYSICIAN: Dr. Manuel Turner with Orthopedics. ADMITTING DIAGNOSES: 1. Right proximal femoral intertrochanteric fracture. 2. Acute traumatic pain. DISCHARGE DIAGNOSES: 1. Right proximal femoral intertrochanteric fracture, non operative. 2. Acute traumatic pain. 3. History of cerebrovascular accident, chronic. 4. Kennedy with suprapubic catheter. DISCHARGE MEDICATIONS: 1. Tylenol 1 g every 6 hours. 2. Amlodipine 10 mg daily. 3. Aspirin 81 mg b.i.d. 4. Atorvastatin 40 mg daily. 5. Baclofen 20 mg t.i.d. 6. Plavix 75 mg daily. 7. Lasix 40 mg daily. 8. Tramadol 50 mg every 6 as needed. 9. Zoloft 25 mg daily. 10. Potassium 20 mEq daily. 11. Ditropan 5 mg daily. HOSPITAL COURSE: Mr. Fish is a 63-year-old male who has been residing in a [facility] facility for last 17 years, who presents emergency department after a fall, found to have the right intertrochanteric hip fracture. Orthopedics, Dr. Turner, was consulted, noted that the fracture was non operative and nonweightbearing. The patient recommend pain control and PT at the nursing facility. The patient initially was thought to have UTI because of bacteriuria. However, he has a chronic indwelling suprapubic catheter. Therefore, he was given 1 dose of ceftriaxone. This was discontinued. The patient is not symptomatic from the same. He was admitted to the Surgery Service. Pain was controlled. He was seen by PT. He is going to go back to his [facility] facility. The patient remained in stable condition. He will be sent home on tramadol and Tylenol. He said this has worked for him. He has tolerated the diet. He is hemodynamically stable. The patient's has been at the bedside and is in agreement with him going back to the nursing facility. The patient is being discharged back to his nursing facility. He can follow up in Trauma Clinic as needed. Follow up with Orthopedics as needed. I have encouraged the specialty bed to prevent skin breakdown and pressure ulcers. This is in the discharge paperwork. I have coordinated care with the bedside RN and the patient's at bedside. The patient was seen by Dr. Jerez this date. PHYSICAL EXAMINATION: VITAL SIGNS: Temperature is 97.6, blood pressure is 125/78, breathing 16 times per minute, 95% on 1.5 nasal cannula. GENERAL: A 63-year-old male, generally nonverbal, but does respond and actually shook my hand when I entered the room today. No acute distress. HEENT: Normocephalic, atraumatic. Trachea is midline. RESPIRATORY: Equal rise and fall, bilateral breath sounds. Clear to auscultation bilaterally. CARDIOVASCULAR: Regular rate and rhythm. No murmurs. ABDOMEN: Protuberant and soft. PELVIS: Stable. Does have pain to the right. EXTREMITIES: He is able to wiggle his extremities. He is in bed, generally nonambulatory. Moves his upper extremities well. PSYCH: He is at his baseline. NEUROLOGIC: The patient is at his baseline. Moves his extremities well. DISPOSITION: Discharging to [facility] facility. TIME SPENT: Greater than 40 minutes was taken in discharge planning of this patient. Job ID: [id number]
== END 2018-07-13 15:00 | DRG 536 ==
LOC: ERS 16:17 → SURG A 18:05
PROVIDERS: ADMIT Specialist; ATTEND Specialist
DX: S72.144A Nondisplaced intertrochanteric fracture of right femur, initial encounter for closed fracture (principal); N39.0 Urinary tract infection, site not specified; I69.351 Hemiplegia and hemiparesis following cerebral infarction affecting right dominant side; N40.0 Benign prostatic hyperplasia without lower urinary tract symptoms; I10 Essential (primary) hypertension; K21.9 Gastro-esophageal reflux disease without esophagitis; E78.5 Hyperlipidemia, unspecified; F32.9 Major depressive disorder, single episode, unspecified; G47.00 Insomnia, unspecified; W19.XXXA Unspecified fall, initial encounter; Y92.129 Unspecified place in nursing home as the place of occurrence of the external cause; Z88.2 Allergy status to sulfonamides; Z88.8 Allergy status to other drugs, medicaments and biological substances; Z88.1 Allergy status to other antibiotic agents; Z79.01 Long term (current) use of anticoagulants
CPT/HCPCS: 36415; 71045; 72170; 80053; 81003; 81015; 85025; 85610; 85730; 87086; 93005; 96361; 96365; 96375; J0696; J2270; J3490; S0028

== ENCOUNTER 2019-04-25 22:28 | Observation (INO) | payer MEDICARE, MEDICAID ==
--- NOTE | 2019-04-26 01:19 | PDOC.FPRHP ---
- History of Present Illness Chief Complaint: suprapubic catheter fell out History of Present Illness: Patient is a 64M with PMHx of CVA with r-sided deficits and aphasia, BPH, HTN, HLD, constipation, GERD, urinary retention with suprapubic cath that presents to the ED from the [place] because his suprapubic catheter needs to be replaced as it had reportedly been pulled out by the patient. The patient has aphasia and the evaluation was limited. He was able to deny chest pain, difficulty breathing, or abdominal pain. Per the ED report: placement of suprapubic catheter attempted 2x by ED staff and 1x by Dr. Murguia, urology, without success. Penile orellana catheter attempted x1 without success. Interventional radiology was consulted for placement but no IR personnel are front line leader this evening. Dr. Murguia was able to get a guidewire in but was not able to get the suprapubic catheter placed, and recommended the patient be admitted to medical with consultation of IR in the am. Patient's urologist is Dr. Hernandez. ED Course: Urojet - Allergies/Adverse Reactions Allergies Allergy/AdvReac Type Severity Reaction Status Date / Time IGOR Inhibitors Allergy Severe Swollen Verified 07/07/18 17:47 Lips Sulfa (Sulfonamide Allergy Unknown Verified 07/11/18 20:29 Antibiotics) sulfamethoxazole Allergy Unknown Verified 07/07/18 15:30 [From Bactrim] trimethoprim [From Bactrim] Allergy Unknown Verified 07/07/18 15:30 - Home Medications Medication Instructions Recorded Confirmed Type Acetaminophen [Tylenol Regular 650 mg PO Q6HR PRN 04/03/17 07/11/18 History Strength] Amlodipine [Norvasc] 10 mg PO DAILY 04/03/17 07/11/18 History Baclofen [Lioresal] 20 mg PO TID 04/03/17 07/11/18 History Bisacodyl [Dulcolax] [address] DAILY PRN 04/03/17 07/11/18 History Clopidogrel Bisulfate [Plavix] 75 mg PO DAILY 04/03/17 07/11/18 History Furosemide [Lasix] 40 mg PO DAILY 04/03/17 07/11/18 History Magnesium Hydroxide [Milk of 30 ml PO DAILY 04/03/17 07/11/18 History Magnesia] Multivit, Therapeutic [Theragran] 1 tab PO DAILY 04/03/17 07/11/18 History Docusate Calcium [Surfak] 480 mg PO BID cap 04/05/17 07/11/18 Rx Sertraline HCl [Zoloft] 25 mg PO DAILY tab 04/05/17 07/11/18 Rx Atorvastatin Calcium [Lipitor] 40 mg PO DAILY 07/07/18 07/11/18 History Artificial Tears [Tears Naturale] 1 - 2 drop EA EYE ASDIR PRN 07/11/18 07/11/18 History Ipratropium/Albuterol Sulfate 1 ampule INH [id number] PRN 07/11/18 07/11/18 History [Iprat-Albut 0.5-3(2.5) mg/3 ml] Loperamide HCl [Loperamide] 2 mg PO DAILY PRN 07/11/18 07/11/18 History Ondansetron [Zofran ODT] 4 mg PO Q4HR PRN 07/11/18 07/11/18 History Oxybutynin [Ditropan] 5 mg PO DAILY 07/11/18 07/11/18 History Potassium Chloride 20 meq PO DAILY 07/11/18 07/11/18 History Tamsulosin HCl 0.4 mg PO HS 07/11/18 07/11/18 History Aspirin Chewable [Aspirin Chewable 81 mg PO DAILY 15 Days #40 tab 07/13/18 Rx Tablet] - History PMHx: CVA with r-sided deficits and aphasia, BPH, HTN, HLD, constipation, GERD, urinary retention with suprapubic cath PSHx: inguinal hernia repair, brain aneurysm repair, suprapubic cath placement > 1yr ago FHx: non-contributory Social: lives in [place] - Review of Systems ROS unobtainable: other (due to aphasia) Respiratory: denies: shortness of breath Cardiovascular: denies: chest pain Gastrointestinal: denies: abdominal pain - Vital signs BP: [132/104] HR: [96] RR: [18] Tmax: [98.8F] Pox: [97]% on [RA] Wt: [99.79kg ] - Physical Exam Constitutional: NAD, other (laying down favoring his right side) HEENT: normocephalic and atraumatic, MMM, other (unable to move his lips or tongue appropriately) Neck: supple, FROM Chest: no-tender to palpation, no lesions Heart: RRR, normal S1/S2 Lungs: CTAB, no respiratory distress Abdomen: soft, non-tender, other (guidewire in place where suprapubic cath inserts) Musculoskeletal: other (R-sided deficits arm and leg) Neurological: other (decreased motion R arm and leg, inability to speak or move mouth appropriately) Skin: no rash/lesions, good turgor Heme/Lymphatic: no unusual bruising or bleeding, no purpura FMR H&P: Results - Labs Result Diagrams: 04/26/19 02:18 FMR H&P: A/P - Problem List (1) Suprapubic catheter dysfunction Current Visit: Yes Status: Acute Code(s): T83.010A - BREAKDOWN (MECHANICAL) OF CYSTOSTOMY CATHETER, INIT ENCNTR (2) HLD (hyperlipidemia) Current Visit: Yes Status: Acute Code(s): E78.5 - HYPERLIPIDEMIA, UNSPECIFIED (3) Constipation Current Visit: Yes Status: Acute Code(s): K59.00 - CONSTIPATION, UNSPECIFIED (4) BPH (benign prostatic hyperplasia) Current Visit: No Status: Acute Code(s): N40.0 - BENIGN PROSTATIC HYPERPLASIA WITHOUT LOWER URINRY TRACT SYMP (5) GERD (gastroesophageal reflux disease) Current Visit: No Status: Acute Code(s): K21.9 - GASTRO-ESOPHAGEAL REFLUX DISEASE WITHOUT ESOPHAGITIS (6) HTN (hypertension) Current Visit: No Status: Acute Code(s): I10 - ESSENTIAL (PRIMARY) HYPERTENSION (7) History of CVA (cerebrovascular accident) Current Visit: No Status: Acute Code(s): Z86.73 - PRSNL HX OF TIA (TIA), AND CEREB INFRC W/O RESID DEFICITS - Plan Patient is a 64M with PMHx of CVA with r-sided deficits and aphasia, BPH, HTN, HLD, constipation, GERD, urinary retention with suprapubic cath admitted for: #Suprapubic cath dysfunction -patient pulled out suprapubic cath -3 attempts at placement with 1 attempt at penile orellana cath placement unsuccessfully -guidewire in place for urine retrieval -Dr. Murguia, urology, consulted from ED and rec consulting IR in am -CMP and CBC pending -IR consult in am for suprapubic cath placement -npo #Hx of CVA -continue home meds -npo for procedure #BPH -continue home meds #HTN -stable -continue home meds #HLD -continue home meds #Constipation -continue home meds #GERD -continue home meds DVTppx: SCD Diet: NPO for procedure Dispo: medical obs for anticipated IR placement of suprapubic cath in am and likely d/c afterward Code: Full; am team to contact Fei MCCANN H&P: Upper Level - Plan Date/Time: 04/26/19 0119 64 yo gentleman with a pmhx of a CVA now with aphasia and right sided deficits and who has a chronic suprapubic catheter was transferred from the [place] after he pulled out his suprapubic catheter today at the [place]. He was admitted for suprapubic catheter placement by IR in the am as they were unable to replace it in the ER. Ajay Cruz, have evaluated this patient and agree with findings/plan as outlined by automotive internet sales consultant resident. Pertinent changes/additions are listed here.
[2019-04-26 02:57] LABS: ALT (SGPT) 13 U/L (8-55); AST (SGOT) 13 U/L (5-34); Albumin 4.1 g/dL (3.4-4.8); Alkaline Phosphatase 76 U/L (40-110); Anion Gap 14 mmol/L (10-20); BUN (Urea Nitrogen) 10 mg/dL (8.4-25.7); Bilirubin, Total 0.4 mg/dL (0.2-1.2); Calc. Creatinine Clearance 0 mL/min (70-130); Calcium 9.1 mg/dL (7.8-10.44); Carbon Dioxide 24 mmol/L (23-31); Chloride 103 mmol/L (98-107); Estimated GFR-MDRD Greater than 90; Globulin 3.5 g/dL (2.4-3.5); Glucose 107 mg/dL (80-115); Potassium 3.6 mmol/L (3.5-5.1); Protein, Total 7.6 g/dL (5.8-8.1); Sodium 137 mmol/L (136-145)
[2019-04-26 03:55] LABS: #Basophils 0.1 thou/uL (0.0-0.2); #Eosinphils 0.4 thou/uL (0.0-0.7); #Lymphocytes 3.3 thou/uL (1.20-3.40); #Monocytes 0.6 thou/uL (0.11-0.59); #Neutrophils 6.6 thou/uL (1.40-6.50); %Basophils 0.6 % (0.0-1.0); %Eosinophils 3.9 % (0.0-10.0); %Lymphocytes 30.1 % (21.0-51.0); %Monocytes 5.5 % (0.0-10.0); %Neutrophils 59.9 % (42.0-75.0); Hemoglobin 12.4 g/dL (14.0-18.0); Mean Corpuscular HGB CONC 33.2 g/dL (32.0-36.0); Mean Corpuscular Hemoglobin 29.5 pg (27.0-31.0); Mean Corpuscular Volume 88.8 fL (78.0-98.0); Mean Platelet Volume 6.9 fL (7.4-10.4); Platelet Count 379 thou/uL (130-400); RBC Distribution Width 12.2 % (11.5-14.5); Red Blood Cell (RBC) Count 4.21 mill/uL (4.70-6.10); White Blood Cell (WBC) Count 10.9 thou/uL (4.8-10.8)
[2019-04-26] MEDS ORDERED: Bisacodyl 10 MG SUPP PR PRN (06:51)
[2019-04-26] MEDS ORDERED: Artificial Tears 18 DROP/0.9 ML EA EYE PRN (06:51)
[2019-04-26] MEDS ORDERED: Acetaminophen 500 MG TAB PO PRN ×2 (06:51→06:59)
[2019-04-26 08:37] LABS: PTT 30.7 SEC (22.9-36.1); Prothrombin Time 13.2 SEC (12.0-14.7)
[2019-04-26] MEDS ORDERED: Amlodipine 10 MG TAB PO SCH (09:00)
[2019-04-26] MEDS ORDERED: Multivit, Therapeutic 1 TAB PO SCH (09:00)
[2019-04-26] MEDS ORDERED: Milk Of Magnesia 30 ML UDCUP PO SCH (09:00)
[2019-04-26] MEDS ORDERED: Losartan 25 MG TAB PO SCH (09:00)
[2019-04-26] MEDS ORDERED: Aspirin Chewable 81 MG TAB PO SCH (09:00)
[2019-04-26] MEDS ORDERED: Furosemide 40 MG TAB PO SCH (09:00)
[2019-04-26] MEDS ORDERED: Oxybutynin 5 MG TAB PO SCH (09:00)
[2019-04-26] MEDS ORDERED: Non-Formulary Item 1 EACH (Potassium Chloride [Potassium Chloride] 20 MEQ) PO SCH (09:00)
[2019-04-26] MEDS ORDERED: Potassium Chloride 20 MEQ TAB PO SCH (09:00)
[2019-04-26] MEDS ORDERED: Docusate Calcium (SURFAK) 240 MG CAP PO SCH (09:00)
[2019-04-26] MEDS ORDERED: Clopidogrel Bisulfate 75 MG TAB PO SCH (09:00)
--- NOTE | 2019-04-26 09:38 | CON ---
DATE OF CONSULTATION: 04/25/2019 HISTORY OF PRESENT ILLNESS: This is a 64-year-old male, who is at a custodial after stroke. He is bedridden. He is unable to communicate. His bladder has been managed with a suprapubic tube. I cannot tell when this was placed, it may not have been placed in this hospital. I can not find a note that said it did, but Dr. Hernandez's name has been attached to him. It is possible this was placed over at the [facility]. Apparently, he pulled this out some time today, unsure how long ago. He came in and the ER nurses could not pass another suprapubic tube. I think he only had a 16-Slovenian suprapubic in. I talked with the ER doctor asking to try to place a Kennedy catheter. They were unsuccessful in doing that. On examining him, he makes noises and moves around. He has had a little bit of movement with his left arm. He has a fairly dense right-sided hemiparesis. SP site looks old, not draining anything. I prepped with Betadine and I was able to get a 5-Slovenian Pollack catheter with a guidewire into the bladder draining a fairly clear looking urine, which I mingo about 10 mL off to send for culture. We fed the guidewire back through and tried to pass the smallest Councill tip catheter we have in the hospital, which is a 16-Slovenian and it could not get it to pass. I think the tract has closed up too much to do so. I left the guidewire in place and we went ahead and prepped out the urethra, passed a 2% Xylocaine jelly for a minute and then tried to pass an 18-Slovenian coude tip catheter. It would get down to the bulb, but not past the bulb. I do not think it is hanging up at the prostate. I think he likely has a dense bulbous urethral stricture. At this point, we went ahead and replaced a 5-Slovenian Pollack catheter over the guidewire across the suprapubic tract, pulled the guidewire out to make sure it was draining, which it was and then pushed in another few inches, so only about 5 or 6 inches of it were coming out the SP site. We placed 4x4s around it and tape and the nurse will obtain a Luer Lock drainage bag for this. We will keep him n.p.o. and would order and have Radiology try to replace the suprapubic tube tomorrow in Radiology through this existing tract, which has now scarred down too much for me to be able to replace it with the size catheters that we have. I will notify Dr. Hernandez, I do not know if he is in town tomorrow or not, we will contact him tomorrow about him. He does have a large right inguinal hernia, but it is reducible. The testicles are descended. The penis is not circumcised. External genitalia are normal. Rectal exam was not done. His bladder was not remarkably distended at all and I think this indwelling open-ended catheter would probably keep him drained through the night and release to allow the urine to come out around it and be an access for Radiology to perhaps get another one in tomorrow. Job ID: [id number]
[2019-04-26] MEDS: Baclofen 10 MG TAB PO SCH ×2 (10:51→15:58)
[2019-04-26] MEDS ORDERED: Midazolam HCl 2 mg/2 ml Vial ONE (12:52)
[2019-04-26] MEDS ORDERED: Fentanyl 100 MCG/2 ML VIAL ONE (12:52)
[2019-04-26] MEDS ORDERED: Sodium Bicarbonate 2.5 MEQ/5 ML VIAL ONE (12:52)
--- NOTE | 2019-04-26 14:35 | HP ---
HISTORY OF PRESENT ILLNESS: I have examined the patient and discussed the case with Dr. Cori Mcginnis. I agree with her assessment and plan. Mr. Fish is an unfortunate 64-year-old black man who had a CVA many years ago, leaving him with right-sided weakness and aphasia. He has an indwelling suprapubic catheter that he pulled out at the residential yesterday. He was brought to our ER for replacement, but after multiple attempts, this was unsuccessful. IR has been consulted today for placement and possible return to the residential. PHYSICAL EXAMINATION: VITAL SIGNS: On exam, his blood pressure is 132/100, his heart rate is 88 and regular, respirations 18, he is afebrile. His room air pulse ox is 97%. GENERAL: He is aphasic, but arousable. NECK: Supple. CARDIAC: Heart rhythm regular. No gallop or murmur. LUNGS: Clear without rales or wheezes. ABDOMEN: Flat and soft. NEUROLOGIC: Weakness on the right side and aphasic. LABORATORY DATA: [place]: [place] [address], hemoglobin 12.4, hematocrit 37.4 with an MCV of 88.8. Chemistries: Sodium is 137, potassium 3.6, chloride 103, bicarb 24, BUN 10, creatinine 0.73, glucose 107. ASSESSMENT: History of right-sided cerebrovascular accident and suprapubic catheter needing to be replaced. PLAN: We will consult IR for catheter replacement with probable return to residential today. Job ID: [id number]
--- NOTE | 2019-04-26 15:51 | SPC ---
Fluoroscopic guided suprapubic catheter exchange Conscious sedation: At least 20 minutes spent with the patient for conscious sedation. HISTORY: Inadvertent removal of suprapubic catheter. Urinary retention. Fluoroscopy time 1.3 minutes. FINDINGS: After explaining the procedure and answering all questions, small amount contrast was injec kristi through the indwelling small caliber suprapubic catheter, partially opacifying the incompletely distended urinary bladder. There was adequate purchase of the catheter within the bladder. The external portions of the catheter and surrounding tissues were prepped and draped in usual steril e fashion. Sterile technique used to place a 0.035 Bentson wire through the catheter to hold position. The tract was carefully dilated with a series of fascial dilators to 12 Italian. An attempt was made t o place a 16 Italian Mansfield tip catheter over the wire. The tract would not allow the 16 Italian catheter to pass. Small hole was placed and the tip of a 12 Italian Kennedy catheter. That catheter was carefully inserted over the guidewire. Position was confirmed with small amount of contrast. Needle was removed and retention balloon inflated. Catheter was secured externally with 0 silk suture. Left draining to grav ity. Patient tolerated the procedure well and was returned in unchanged condition. IMPRESSION: Technically successful fluoroscopic guided suprapubic catheter exchange for a 12 Italian F oley catheter.
--- NOTE | 2019-04-26 16:02 | PDOC.BPN ---
- Brief Progress Note spoke to patient's urologist ok to d/c, follow up in clinic in 2 weeks
[2019-04-26 19:15] VITALS: BP 127/76; TEMP 98.3
[2019-04-26] MEDS ORDERED: FLU VACC TS2019-20(65YR UP)/PF 180 MCG/0.5 ML SYRINGE IM ONE (21:00)
[2019-04-26] MEDS ORDERED: Prevnar 13-Val Conj/PF 0.5 ML SYRINGE IM ONE (21:00)
[2019-04-26] MEDS ORDERED: Tamsulosin HCl 0.4 MG CAP PO SCH (21:00)
[2019-04-26] MEDS ORDERED: Atorvastatin Calcium 40 MG TAB PO SCH (21:00)
--- NOTE | 2019-04-29 01:23 | DIS ---
DATE OF ADMISSION: 04/26/2019 DATE OF DISCHARGE: 04/26/2019 RESIDENT: Davide Romero MD, I personally saw this patient for one day. ADMITTING ATTENDING: Morales Mccormick MD DISCHARGE ATTENDING: Chinedu Wilcox MD CONSULTS: 1. Wound Care. 2. Urology, Jr Campos MD. PROCEDURE PERFORMED: Replacement of suprapubic catheter on 04/26/2019. DISCHARGE MEDICATIONS: 1. Baclofen 10 mg p.o. t.i.d. 2. Acetaminophen. 3. Dulcolax p.r.n. 4. Amlodipine 10 mg p.o. daily. 5. Multivitamin. 6. Magnesium hydroxide 30 mL p.o. daily p.r.n. 7. Lasix 40 mg p.o. daily. 8. Docusate calcium 480 mg p.o. b.i.d. 9. Atorvastatin 40 mg p.o. at bedtime. 10. Artificial Tears. 11. Ondansetron 4 mg q.4 hours p.r.n. 12. Loperamide 2 mg p.o. daily p.r.n. 13. Potassium chloride 20 mEq p.o. daily. 14. Oxybutynin 5 mg p.o. daily. 15. Tamsulosin 0.4 mg p.o. at bedtime. 16. Losartan 25 mg p.o. daily. 17. Tramadol 50 mg p.o. q.4 hours p.r.n. 18. Aspirin 81 mg p.o. daily. 19. Clopidogrel 75 mg p.o. daily. DISCONTINUED MEDICATIONS: None. PRIMARY DIAGNOSIS: Displaced suprapubic catheter with dysfunction. SECONDARY DIAGNOSIS: History of cerebrovascular accident, BPH, hypertension, hyperlipidemia, constipation, gastroesophageal reflux disease. HISTORY OF PRESENT ILLNESS/HOSPITAL COURSE: This is a 64-year-old male, who presented to the emergency department with a dysfunctional suprapubic catheter. Urology was consulted from the ER, who attempted to pass a new suprapubic catheter few times, but was ultimately unsuccessful likely secondary to some stenosis of tract. The patient was admitted for observation until Interventional Radiology could place the catheter. This was accomplished the same day and was well tolerated. The patient was then ready for discharge back to [facility]. DISPOSITION: Stable. DISCHARGE INSTRUCTIONS: 1. Location: [facility]. 2. Activity: Fall risk. 3. Diet: Heart healthy diet. 4. Followup: Follow up with Dr. Rustam Hernandez in 2 to [address] Gordy Braden in 14 days. Job ID: [id number]
== END 2019-04-26 19:14 ==
LOC: ERS 22:28 → T4-B 04-26 01:34
PROVIDERS: ADMIT Family Medicine; ATTEND Family Medicine
DX: T83.028A Displacement of other urinary catheter, initial encounter (principal); I10 Essential (primary) hypertension; N40.0 Benign prostatic hyperplasia without lower urinary tract symptoms; E78.5 Hyperlipidemia, unspecified; K59.00 Constipation, unspecified; K21.9 Gastro-esophageal reflux disease without esophagitis; Y83.1 Surgical operation with implant of artificial internal device as the cause of abnormal reaction of the patient, or of later complication, without mention of misadventure at the time of the procedure; Z86.73 Personal history of transient ischemic attack (TIA), and cerebral infarction without residual deficits; Z79.899 Other long term (current) drug therapy
CPT/HCPCS: 51600; 80053; 85025; 85610; 85730; 97139; 99284; C1758; G0378 ×2; 36415; J2250; J3010

== ENCOUNTER 2022-10-21 08:15 | Outpatient (CLI) | payer MEDICARE, MEDICAID ==
[2022-10-21] MEDS ORDERED: Iopamidol 370 76% 100 ML VIAL ONE (09:52)
== END 2022-10-21 08:16 | disposition home or self-care (01) ==
LOC: CT 08:15
PROVIDERS: ATTEND Urology
DX: N28.1 Cyst of kidney, acquired (principal); N31.9 Neuromuscular dysfunction of bladder, unspecified; K40.90 Unilateral inguinal hernia, without obstruction or gangrene, not specified as recurrent; R33.8 Other retention of urine; K80.20 Calculus of gallbladder without cholecystitis without obstruction; N28.9 Disorder of kidney and ureter, unspecified
CPT/HCPCS: 74178; Q9967

== ENCOUNTER 2023-08-17 13:44 | Inpatient (IN) | payer MEDICARE, MEDICAID ==
[2023-08-17] MEDS ORDERED: Ipratropium/Albuterol 3 ML NEB NEB PRN (14:50)
[2023-08-17] MEDS ORDERED: VANCOMYCIN IVPB PRN (14:51)
[2023-08-17] MEDS ORDERED: Acetaminophen 650 MG Suppository PR PRN (14:53)
[2023-08-17] MEDS ORDERED: Ondansetron PF 4 MG/2 ML Vial IVP PRN (14:53)
[2023-08-17] MEDS: Sodium Chloride 0.9% 1,000 ML IV SCH (15:44)
[2023-08-17] MEDS: Sodium Chloride 0.9% 500 ML IV SCH ×2 (15:44→17:56)
[2023-08-17 15:52] LABS: Anion Gap 16 mmol/L (10-20); BUN (Urea Nitrogen) 37 mg/dL (8.4-25.7); Calc. Creatinine Clearance 60 mL/min (70-130); Calcium 8.9 mg/dL (7.8-10.44); Carbon Dioxide 16 mmol/L (23-31); Chloride 112 mmol/L (98-107); Estimated GFR 52; Glucose 49 mg/dL (80-115); Potassium 7.2 mmol/L (3.5-5.1); Sodium 137 mmol/L (136-145)
[2023-08-17] MEDS: Dextrose 50% Abboject 50 ML SYRINGE SLOW IVP SCH (15:57)
[2023-08-17] MEDS: Dextrose 50% Abboject 50 ML SYRINGE ONE (16:04)
[2023-08-17] MEDS: Sodium Bicarb 50 mEq/50 ML VIAL IVP SCH (16:21)
[2023-08-17] MEDS: LOKELMA 10 GM PACKET PO SCH (16:39)
[2023-08-17] MEDS: Sodium Bicarb 50 MEQ/50 ML Abboject 8.4% SYRINGE ONE (16:43)
[2023-08-17 17:54] LABS: Bilirubin Negative (Negative); Blood, Urine 1+ (Negative); CAUTI Indications for Culture Fever or rigors; Clarity Turbid (Clear); Glucose, Urine (Dipstick) Normal (Negative); Ketone, Urine Negative (Negative); Leukocyte 500 Leu/uL (Negative); Nitrite Negative (Negative); Protein, Urine (Dipstick) 100 mg/dL (Neg-Trace); Specific Gravity, Urine 1.025 (1.002-1.036); Squamous Epithelial 0-3 HPF (0-3); Urobilinogen Normal mg/dL (Less than 2); WBC/HPF Greater than 50 HPF (0-3)
[2023-08-17 17:56] LABS: Base Excess (BEa) -3.5 mEq/L (-2.0 to +3.0); CO2 Tension 41.6 mmHg (35.0-45.0); Calcium, Ionized (arterial) 1.16 mmol/L (1.12-1.30); Carboxyhemoglobin (COHb) 0.1 gm% (0.0-3.0); Hematocrit-ABG 31 % (42.0-52.0); Hemoglobin (Hb) 10.5 g/dL (14.0-18.0); pH, Arterial 7.341 (7.35-7.45)
[2023-08-17 17:59] LABS: O2 Tension (PaO2), arterial 42.4 mmHg (> 80.0)
[2023-08-17 18:01] LABS: Potassium - ABG Lab 6.26 mmol/L (3.70-5.30); Puncture Site LRA
[2023-08-17 18:05] LABS: Bacteria/HPF 4+ HPF (None Seen); Triple Phosphate Crystal 2+ HPF (None Seen)
[2023-08-17 18:08] LABS: Renal Epithelial 0-3 HPF (None Seen); Urine Culture Reflex Yes Yes
[2023-08-17] MEDS: Albuterol 2.5 MG (3 mL) NEB NEB SCH (18:21)
[2023-08-17] MEDS: Ipratropium/Albuterol 3 ML NEB NEB SCH (19:07)
[2023-08-17 19:09] LABS: Anion Gap 14 mmol/L (10-20); BUN (Urea Nitrogen) 37 mg/dL (8.4-25.7); Calc. Creatinine Clearance 55 mL/min (70-130); Calcium 8.4 mg/dL (7.8-10.44); Carbon Dioxide 19 mmol/L (23-31); Chloride 114 mmol/L (98-107); Estimated GFR 46; Glucose 67 mg/dL (80-115); Potassium 6.5 mmol/L (3.5-5.1); Sodium 140 mmol/L (136-145)
[2023-08-17] MEDS ORDERED: Glucagon 1 MG/ML KIT IM PRN (19:33)
[2023-08-17] MEDS ORDERED: Dextrose 5% in Water 1,000 ML IV PRN (19:33)
[2023-08-17] MEDS: Dextrose 50% Abboject 50 ML SYRINGE SLOW IVP PRN (19:52)
[2023-08-17] MEDS: Sodium Bicarbonate 150 MEQ in Dextrose 5% in Water 1,000 ML IV SCH (20:15)
[2023-08-17 20:32] LABS: Anion Gap 14 mmol/L (10-20); BUN (Urea Nitrogen) 37 mg/dL (8.4-25.7); Calc. Creatinine Clearance 53 mL/min (70-130); Calcium 8.2 mg/dL (7.8-10.44); Carbon Dioxide 18 mmol/L (23-31); Chloride 113 mmol/L (98-107); Estimated GFR 45; Glucose 175 mg/dL (80-115); Potassium 6.2 mmol/L (3.5-5.1); Sodium 139 mmol/L (136-145)
[2023-08-17] MEDS ORDERED: EPINEPHrine 1 MG/ML VIAL ONE (21:24)
[2023-08-17] MEDS ORDERED: Heparin 10,000 UNITS/ 10 ML VIAL ONE (21:24)
[2023-08-17] MEDS ORDERED: Lidocaine 2% PF 5 ML VIAL ONE (21:24)
[2023-08-17] MEDS ORDERED: Bupivacaine PF 0.5% 30 ML VIAL ONE (21:24)
[2023-08-17] MEDS: Famotidine/PF 20 mg/2ml Vial SLOW IVP SCH (23:27)
[2023-08-17] MEDS: Vancomycin HCl 750 MG in Sodium Chloride 0.9% 250 ML 250 ML IVPB SCH (23:28)
[2023-08-17] MEDS: Cefepime 2 GM in Sodium Chloride 0.9% 100 ML IVPB SCH (23:28)
[2023-08-18 00:09] LABS: Anion Gap 14 mmol/L (10-20); BUN (Urea Nitrogen) 39 mg/dL (8.4-25.7); Calc. Creatinine Clearance 50 mL/min (70-130); Calcium 8.4 mg/dL (7.8-10.44); Carbon Dioxide 17 mmol/L (23-31); Chloride 114 mmol/L (98-107); Estimated GFR 41; Glucose 68 mg/dL (80-115); Potassium 5.9 mmol/L (3.5-5.1); Sodium 139 mmol/L (136-145)
[2023-08-18] MEDS: Sodium Polystyrene Sulfonate 15 GM (60 mL) BOT PO SCH (02:43)
[2023-08-18] MEDS ORDERED: Etomidate 40 MG (20 mL) VIAL ONE (03:50)
[2023-08-18] MEDS ORDERED: Rocuronium Bromide 10 MG/ML (10ML VIAL) ONE (03:50)
[2023-08-18] MEDS ORDERED: Ventilator Sedation Protocol 1 EACH FS SCH (03:51)
[2023-08-18] MEDS ORDERED: DISCONTINUE PREVIOUS NARCOTIC PAIN MEDICATIONS AND BENZODIAZEPINES FS SCH (04:00)
[2023-08-18] MEDS ORDERED: Lorazepam 2 MG/ML VIAL SLOW IVP PRN (04:00)
[2023-08-18] MEDS ORDERED: Fentanyl CADD 100 ML IV SCH (04:00)
[2023-08-18] MEDS ORDERED: Fentanyl BOLUS 250 ML IVPB PRN (04:00)
[2023-08-18] MEDS ORDERED: Propofol BOLUS 1,000 MG/100 ML VIAL IV PRN (04:00)
[2023-08-18] MEDS ORDERED: Morphine 2 MG/ML VIAL SLOW IVP PRN (04:00)
[2023-08-18] MEDS ORDERED: Propofol 1,000 MG/100 ML VIAL IV PRN (04:00)
[2023-08-18 04:08] LABS: Actual Bicarbonate (HCO3a) 21.6 mEq/L (22-28); Base Excess (BEa) -3.3 mEq/L (-2.0 to +3.0); CO2 Tension 38.3 mmHg (35.0-45.0); Calcium, Ionized (arterial) 1.13 mmol/L (1.12-1.30); Carboxyhemoglobin (COHb) 0.3 gm% (0.0-3.0); Hematocrit-ABG 31 % (42.0-52.0); Hemoglobin (Hb) 10.5 g/dL (14.0-18.0); O2 Tension (PaO2), arterial 68.3 mmHg (> 80.0); Potassium - ABG Lab 5.17 mmol/L (3.70-5.30); pH, Arterial 7.369 (7.35-7.45)
[2023-08-18 04:09] LABS: Puncture Site LRA
[2023-08-18 04:10] LABS: ALV-art Gradient 169.025 mmHg (0-20)
[2023-08-18] MEDS: Rocuronium Bromide 10 MG/ML (10ML VIAL) IVP SCH (04:18)
[2023-08-18] MEDS: Etomidate 40 MG (20 mL) VIAL IVP SCH (04:19)
[2023-08-18] MEDS: fentaNYL 50 mcg/mL 1 mL Vial SLOW IVP SCH (04:19)
[2023-08-18] MEDS: fentaNYL 50 mcg/mL 1 mL Vial ONE (04:20)
[2023-08-18] MEDS: Propofol 1,000 MG/100 ML VIAL IV ONE (04:21)
[2023-08-18] MEDS ORDERED: NOREPINEPHRINE 8 MG/250 ML-D5W 250 ML IVPB SCH (05:00)
[2023-08-18 05:04] LABS: Hematocrit 28.7 % (42.0-52.0); Hemoglobin 9.4 g/dL (14.0-18.0); Mean Corpuscular HGB CONC 32.8 g/dL (32.0-36.0); Mean Corpuscular Hemoglobin 28.9 pg (27.0-31.0); Mean Corpuscular Volume 88.3 fL (78.0-98.0); Mean Platelet Volume 10.4 fL (7.4-10.4); Platelet Count 164 10x3/uL (130-400); RBC Distribution Width 14.7 % (11.5-14.5); Red Blood Cell (RBC) Count 3.25 mill/uL (4.70-6.10)
[2023-08-18 05:28] LABS: Vancomycin, Random 30.7 ug/mL (See Comment)
[2023-08-18 05:38] LABS: Anion Gap 14 mmol/L (10-20); BUN (Urea Nitrogen) 36 mg/dL (8.4-25.7); Calc. Creatinine Clearance 48 mL/min (70-130); Calcium 8.4 mg/dL (7.8-10.44); Carbon Dioxide 20 mmol/L (23-31); Chloride 113 mmol/L (98-107); Estimated GFR 40; Glucose 91 mg/dL (80-115); Potassium 5.1 mmol/L (3.5-5.1); Sodium 142 mmol/L (136-145)
[2023-08-18 06:32] LABS: Band 17 % (5-11); Burr Cells SLIGHT = 2-5 cells HPF (0-1); Lymphocytes 3 % (21-51); Neutrophil 80 % (42-75); Platelet Adequacy Comment Platelets Normal; Smudge Cells 8.7 %
[2023-08-18 07:00] LABS: Actual Bicarbonate (HCO3a) 22.2 mEq/L (22-28); Base Excess (BEa) -1.6 mEq/L (-2.0 to +3.0); CO2 Tension 33.9 mmHg (35.0-45.0); Calcium, Ionized (arterial) 1.09 mmol/L (1.12-1.30); Carboxyhemoglobin (COHb) 0.3 gm% (0.0-3.0); Hematocrit-ABG 30 % (42.0-52.0); Hemoglobin (Hb) 10.3 g/dL (14.0-18.0); O2 Tension (PaO2), arterial 86.8 mmHg (> 80.0); Puncture Site LRA; pH, Arterial 7.434 (7.35-7.45)
[2023-08-18 07:01] LABS: ALV-art Gradient 156.025 mmHg (0-20)
[2023-08-18] MEDS: Cefepime 1 GM in Sodium Chloride 0.9% 100 ML IVPB SCH (08:14)
[2023-08-18] MEDS: LOKELMA 5 GM PACKET PO SCH (08:14)
[2023-08-18] MEDS ORDERED: Dexmedetomidine In 0.9 % NaCl 100 ML IV SCH (09:15)
[2023-08-18] MEDS: Enoxaparin 40 MG (0.4 mL) SYRINGE SC SCH (09:54)
[2023-08-18] MEDS: Famotidine/PF 20 mg/2ml Vial SLOW IVP SCH (20:42)
[2023-08-19 04:32] LABS: #Basophils Less than 0.03 10x3/uL (0.0-0.2); %Basophils 0.1 % (0.0-1.0); %Eosinophils 0.4 % (0.0-10.0); %Lymphocytes 10.9 % (21.0-51.0); %Monocytes 4.7 % (0.0-10.0); %Neutrophils 83.5 % (42.0-75.0); Hematocrit 26.8 % (42.0-52.0); Hemoglobin 8.6 g/dL (14.0-18.0); Mean Corpuscular HGB CONC 32.1 g/dL (32.0-36.0); Mean Corpuscular Hemoglobin 29.4 pg (27.0-31.0); Mean Corpuscular Volume 91.5 fL (78.0-98.0); Mean Platelet Volume 10.9 fL (7.4-10.4); Platelet Count 131 10x3/uL (130-400); RBC Distribution Width 15.1 % (11.5-14.5); Red Blood Cell (RBC) Count 2.93 mill/uL (4.70-6.10)
[2023-08-19 04:50] LABS: Anion Gap 12 mmol/L (10-20); BUN (Urea Nitrogen) 32 mg/dL (8.4-25.7); Calc. Creatinine Clearance 58 mL/min (70-130); Calcium 8.3 mg/dL (7.8-10.44); Carbon Dioxide 22 mmol/L (23-31); Chloride 114 mmol/L (98-107); Estimated GFR 49; Glucose 74 mg/dL (80-115); Potassium 4.4 mmol/L (3.5-5.1); Sodium 144 mmol/L (136-145); Vancomycin, Random 26.5 ug/mL (See Comment)
[2023-08-19] MEDS: Dextrose 5%-Lactated Ringers 1,000 ML IV SCH ×2 (06:17→10:30)
[2023-08-19 06:52] LABS: Actual Bicarbonate (HCO3a) 23.7 mEq/L (22-28); Base Excess (BEa) -1.2 mEq/L (-2.0 to +3.0); CO2 Tension 40.4 mmHg (35.0-45.0); Calcium, Ionized (arterial) 1.16 mmol/L (1.12-1.30); Carboxyhemoglobin (COHb) 0.3 gm% (0.0-3.0); Hematocrit-ABG 29 % (42.0-52.0); Hemoglobin (Hb) 9.9 g/dL (14.0-18.0); Potassium - ABG Lab 4.37 mmol/L (3.70-5.30); pH, Arterial 7.386 (7.35-7.45)
[2023-08-19 06:53] LABS: Puncture Site LRA
[2023-08-19] MEDS: Vancomycin HCl 750 MG in Sodium Chloride 0.9% 250 ML 250 ML IVPB SCH (10:30)
[2023-08-19] MEDS: Furosemide 40 MG (4 mL) VIAL SLOW IVP SCH (11:01)
[2023-08-20 04:12] LABS: #Basophils Less than 0.03 10x3/uL (0.0-0.2); %Eosinophils 1.7 % (0.0-10.0); %Lymphocytes 10.4 % (21.0-51.0); %Monocytes 4.6 % (0.0-10.0); %Neutrophils 83.1 % (42.0-75.0); Hematocrit 26.2 % (42.0-52.0); Hemoglobin 8.4 g/dL (14.0-18.0); Mean Corpuscular HGB CONC 32.1 g/dL (32.0-36.0); Mean Corpuscular Volume 90.3 fL (78.0-98.0); Mean Platelet Volume 10.8 fL (7.4-10.4); Platelet Count 128 10x3/uL (130-400)
[2023-08-20 04:23] LABS: Anion Gap 13 mmol/L (10-20); BUN (Urea Nitrogen) 29 mg/dL (8.4-25.7); Calc. Creatinine Clearance 77 mL/min (70-130); Calcium 8.5 mg/dL (7.8-10.44); Carbon Dioxide 23 mmol/L (23-31); Chloride 114 mmol/L (98-107); Estimated GFR 69; Glucose 85 mg/dL (80-115); Potassium 3.9 mmol/L (3.5-5.1); Sodium 146 mmol/L (136-145)
[2023-08-20] MEDS: Dextrose 5% in Water 1,000 ML IV SCH (09:59)
[2023-08-20] MEDS: Famotidine/PF 20 mg/2ml Vial SLOW IVP SCH (09:59)
[2023-08-20] MEDS: Vancomycin (BATCH) 1.25 GM in Premix 1 BAG IVPB SCH (12:47)
[2023-08-21 04:29] LABS: #Basophils Less than 0.03 10x3/uL (0.0-0.2); %Eosinophils 1.9 % (0.0-10.0); %Lymphocytes 9.8 % (21.0-51.0); %Monocytes 4.6 % (0.0-10.0); %Neutrophils 83.4 % (42.0-75.0); Hematocrit 25.8 % (42.0-52.0); Hemoglobin 8.4 g/dL (14.0-18.0); Mean Corpuscular HGB CONC 32.6 g/dL (32.0-36.0); Mean Corpuscular Hemoglobin 29.4 pg (27.0-31.0); Mean Corpuscular Volume 90.2 fL (78.0-98.0); Mean Platelet Volume 10.6 fL (7.4-10.4); Platelet Count 129 10x3/uL (130-400); RBC Distribution Width 14.7 % (11.5-14.5); Red Blood Cell (RBC) Count 2.86 mill/uL (4.70-6.10)
[2023-08-21 05:04] LABS: Anion Gap 14 mmol/L (10-20); BUN (Urea Nitrogen) 28 mg/dL (8.4-25.7); Calc. Creatinine Clearance 74 mL/min (70-130); Calcium 8.6 mg/dL (7.8-10.44); Carbon Dioxide 19 mmol/L (23-31); Chloride 112 mmol/L (98-107); Estimated GFR 65; Glucose 77 mg/dL (80-115); Potassium 4.4 mmol/L (3.5-5.1); Sodium 141 mmol/L (136-145)
[2023-08-21 05:05] LABS: Vancomycin, Random 27.8 ug/mL (See Comment)
[2023-08-22 04:15] LABS: #Basophils Less than 0.03 10x3/uL (0.0-0.2); %Basophils 0.1 % (0.0-1.0); %Eosinophils 2.9 % (0.0-10.0); %Lymphocytes 14.5 % (21.0-51.0); %Monocytes 7.6 % (0.0-10.0); %Neutrophils 74.5 % (42.0-75.0); Mean Corpuscular Hemoglobin 29.1 pg (27.0-31.0); Mean Corpuscular Volume 90.9 fL (78.0-98.0); Mean Platelet Volume 10.7 fL (7.4-10.4); Platelet Count 123 10x3/uL (130-400); RBC Distribution Width 14.8 % (11.5-14.5); Red Blood Cell (RBC) Count 2.75 mill/uL (4.70-6.10)
[2023-08-22 04:22] LABS: Vancomycin, Random 27.5 ug/mL (See Comment)
[2023-08-22 04:25] LABS: Anion Gap 12 mmol/L (10-20); BUN (Urea Nitrogen) 36 mg/dL (8.4-25.7); Calc. Creatinine Clearance 66 mL/min (70-130); Calcium 8.6 mg/dL (7.8-10.44); Carbon Dioxide 21 mmol/L (23-31); Chloride 112 mmol/L (98-107); Estimated GFR 57; Glucose 88 mg/dL (80-115); Potassium 4.4 mmol/L (3.5-5.1); Sodium 141 mmol/L (136-145)
[2023-08-22] MEDS: Vancomycin HCl 750 MG in Sodium Chloride 0.9% 250 ML 250 ML IVPB SCH (09:35)
[2023-08-22] MEDS: Dexmedetomidine In 0.9 % NaCl 100 ML IV SCH (13:05)
[2023-08-23 05:05] LABS: #Basophils Less than 0.03 10x3/uL (0.0-0.2); %Basophils 0.1 % (0.0-1.0); %Eosinophils 3.9 % (0.0-10.0); %Lymphocytes 15.8 % (21.0-51.0); %Monocytes 8.4 % (0.0-10.0); %Neutrophils 71.2 % (42.0-75.0); Hematocrit 24.9 % (42.0-52.0); Hemoglobin 7.9 g/dL (14.0-18.0); Mean Corpuscular HGB CONC 31.7 g/dL (32.0-36.0); Mean Corpuscular Hemoglobin 28.4 pg (27.0-31.0); Mean Corpuscular Volume 89.6 fL (78.0-98.0); Mean Platelet Volume 11.5 fL (7.4-10.4); Platelet Count 104 10x3/uL (130-400); RBC Distribution Width 14.7 % (11.5-14.5); Red Blood Cell (RBC) Count 2.78 mill/uL (4.70-6.10)
[2023-08-23 05:44] LABS: Vancomycin, Random 22.9 ug/mL (See Comment)
[2023-08-23 05:52] LABS: Anion Gap 15 mmol/L (10-20); BUN (Urea Nitrogen) 42 mg/dL (8.4-25.7); Calc. Creatinine Clearance 67 mL/min (70-130); Calcium 8.5 mg/dL (7.8-10.44); Carbon Dioxide 19 mmol/L (23-31); Chloride 112 mmol/L (98-107); Estimated GFR 58; Glucose 98 mg/dL (80-115); Potassium 4.7 mmol/L (3.5-5.1); Sodium 141 mmol/L (136-145)
[2023-08-23] MEDS: Sodium Chloride 0.45% 1,000 ML IV SCH (08:42)
[2023-08-24 04:45] LABS: #Basophils Less than 0.03 10x3/uL (0.0-0.2); %Basophils 0.1 % (0.0-1.0); %Eosinophils 4.3 % (0.0-10.0); %Monocytes 8.4 % (0.0-10.0); %Neutrophils 72.8 % (42.0-75.0); Hematocrit 23.9 % (42.0-52.0); Hemoglobin 7.6 g/dL (14.0-18.0); Mean Corpuscular HGB CONC 31.8 g/dL (32.0-36.0); Mean Corpuscular Hemoglobin 28.5 pg (27.0-31.0); Mean Corpuscular Volume 89.5 fL (78.0-98.0); Mean Platelet Volume 11.4 fL (7.4-10.4); Platelet Count 114 10x3/uL (130-400); RBC Distribution Width 14.6 % (11.5-14.5); Red Blood Cell (RBC) Count 2.67 mill/uL (4.70-6.10)
[2023-08-24 04:54] LABS: Anion Gap 8 mmol/L (10-20); BUN (Urea Nitrogen) 51 mg/dL (8.4-25.7); Calc. Creatinine Clearance 75 mL/min (70-130); Calcium 8.6 mg/dL (7.8-10.44); Carbon Dioxide 21 mmol/L (23-31); Chloride 114 mmol/L (98-107); Estimated GFR 67; Glucose 95 mg/dL (80-115); Potassium 5.3 mmol/L (3.5-5.1); Sodium 138 mmol/L (136-145)
[2023-08-24] MEDS: Sodium Polystyrene Sulfonate 15 GM (60 mL) BOT PER TUBE SCH (09:23)
[2023-08-24] MEDS: Scopolamine 1 mg/72 hour Patch TD SCH (09:24)
[2023-08-24] MEDS: Senokot S 8.6-50 MG TAB PO SCH (09:24)
[2023-08-24] MEDS: Pantoprazole 40 MG VIAL IVP SCH (09:25)
[2023-08-24] MEDS: Baclofen 10 MG TAB PO SCH (09:25)
[2023-08-24] MEDS: Polyethylene Glycol 3350 17 GM Packet PER TUBE SCH (13:33)
[2023-08-24 16:02] LABS: Anion Gap 14 mmol/L (10-20); BUN (Urea Nitrogen) 54 mg/dL (8.4-25.7); Calc. Creatinine Clearance 75 mL/min (70-130); Calcium 8.7 mg/dL (7.8-10.44); Carbon Dioxide 20 mmol/L (23-31); Chloride 113 mmol/L (98-107); Estimated GFR 66; Glucose 83 mg/dL (80-115); Potassium 5.5 mmol/L (3.5-5.1); Sodium 141 mmol/L (136-145)
[2023-08-24] MEDS: LOKELMA 10 GM PACKET PO SCH (17:30)
[2023-08-25 04:32] LABS: #Basophils Less than 0.03 10x3/uL (0.0-0.2); %Basophils 0.1 % (0.0-1.0); %Eosinophils 2.4 % (0.0-10.0); %Lymphocytes 15.2 % (21.0-51.0); %Monocytes 11.5 % (0.0-10.0); %Neutrophils 70.3 % (42.0-75.0); Hematocrit 22.6 % (42.0-52.0); Hemoglobin 7.1 g/dL (14.0-18.0); Mean Corpuscular HGB CONC 31.4 g/dL (32.0-36.0); Mean Corpuscular Hemoglobin 28.2 pg (27.0-31.0); Mean Corpuscular Volume 89.7 fL (78.0-98.0); Mean Platelet Volume 10.9 fL (7.4-10.4); Platelet Count 150 10x3/uL (130-400); RBC Distribution Width 14.6 % (11.5-14.5); Red Blood Cell (RBC) Count 2.52 mill/uL (4.70-6.10)
[2023-08-25 04:53] LABS: Anion Gap 13 mmol/L (10-20); BUN (Urea Nitrogen) 56 mg/dL (8.4-25.7); Calc. Creatinine Clearance 63 mL/min (70-130); Calcium 8.3 mg/dL (7.8-10.44); Carbon Dioxide 21 mmol/L (23-31); Chloride 113 mmol/L (98-107); Estimated GFR 53; Glucose 94 mg/dL (80-115); Potassium 4.6 mmol/L (3.5-5.1); Sodium 142 mmol/L (136-145)
[2023-08-25] MEDS ORDERED: PROPOFOL 20 ML ONE ×2 (11:00→12:57)
[2023-08-25] MEDS ORDERED: Rocuronium Bromide 10 MG/ML (10ML VIAL) ONE (11:00)
[2023-08-25] MEDS ORDERED: Lidocaine 2% PF 5 ML VIAL ONE (11:01)
[2023-08-25] MEDS ORDERED: PHENYLEPHRINE-NS 100 MCG/ML 10 ML SYRINGE ONE (11:01)
[2023-08-25] MEDS ORDERED: CEFAZOLIN 1 GM VIAL ONE (11:39)
[2023-08-25] MEDS ORDERED: EPINEPHrine 1 MG/ML VIAL ONE (11:53)
[2023-08-25] MEDS ORDERED: Bupivacaine 0.25% HCL 30 ML VIAL ONE (11:53)
[2023-08-25] MEDS ORDERED: SUGAMMADEX SODIUM 200 MG/2 ML VIAL ONE (12:20)
[2023-08-25] MEDS ORDERED: Ondansetron PF 4 MG/2 ML Vial ONE (12:20)
[2023-08-26 04:57] LABS: #Basophils Less than 0.03 10x3/uL (0.0-0.2); %Basophils 0.1 % (0.0-1.0); %Eosinophils 0.4 % (0.0-10.0); %Lymphocytes 7.9 % (21.0-51.0); %Monocytes 7.9 % (0.0-10.0); %Neutrophils 83.2 % (42.0-75.0); Hematocrit 22.3 % (42.0-52.0); Mean Corpuscular HGB CONC 31.4 g/dL (32.0-36.0); Mean Corpuscular Hemoglobin 28.6 pg (27.0-31.0); Mean Platelet Volume 10.3 fL (7.4-10.4); Platelet Count 238 10x3/uL (130-400); RBC Distribution Width 14.8 % (11.5-14.5); Red Blood Cell (RBC) Count 2.45 mill/uL (4.70-6.10)
[2023-08-26 05:09] LABS: Anion Gap 15 mmol/L (10-20); BUN (Urea Nitrogen) 50 mg/dL (8.4-25.7); Calc. Creatinine Clearance 62 mL/min (70-130); Calcium 8.3 mg/dL (7.8-10.44); Carbon Dioxide 20 mmol/L (23-31); Chloride 114 mmol/L (98-107); Estimated GFR 53; Glucose 83 mg/dL (80-115); Potassium 4.6 mmol/L (3.5-5.1); Sodium 144 mmol/L (136-145)
[2023-08-26] MEDS: Lansoprazole 30 MG/10 ML UDCUP PER TUBE SCH (08:00)
[2023-08-27 05:03] LABS: #Basophils Less than 0.03 10x3/uL (0.0-0.2); %Basophils 0.1 % (0.0-1.0); %Eosinophils 0.9 % (0.0-10.0); %Lymphocytes 10.4 % (21.0-51.0); %Monocytes 8.9 % (0.0-10.0); %Neutrophils 79.3 % (42.0-75.0); Hematocrit 22.5 % (42.0-52.0); Hemoglobin 7.2 g/dL (14.0-18.0); Mean Corpuscular Hemoglobin 29.4 pg (27.0-31.0); Mean Corpuscular Volume 91.8 fL (78.0-98.0); Mean Platelet Volume 9.9 fL (7.4-10.4); Platelet Count 323 10x3/uL (130-400); RBC Distribution Width 14.9 % (11.5-14.5); Red Blood Cell (RBC) Count 2.45 mill/uL (4.70-6.10)
[2023-08-27 05:23] LABS: Anion Gap 11 mmol/L (10-20); BUN (Urea Nitrogen) 46 mg/dL (8.4-25.7); Calc. Creatinine Clearance 62 mL/min (70-130); Calcium 8.5 mg/dL (7.8-10.44); Carbon Dioxide 20 mmol/L (23-31); Chloride 117 mmol/L (98-107); Estimated GFR 51; Glucose 84 mg/dL (80-115); Potassium 4.4 mmol/L (3.5-5.1); Sodium 144 mmol/L (136-145)
[2023-08-27 05:42] VITALS: BMI 30.4
[2023-08-27 09:40] VITALS: BMI 30.4
[2023-08-27 18:33] VITALS: BP 145/85
[2023-08-27] MEDS: Acetaminophen 325 MG TAB PO PRN (21:01)
[2023-08-27 21:56] VITALS: TEMP 66.5
== END 2023-08-27 21:35 | DRG 4 ==
LOC: IMCU/EMU 13:44 → CCU 19:12
PROVIDERS: ADMIT Family Medicine; ATTEND Internal Medicine
PROC: 06HY33Z Insertion of Infusion Device into Lower Vein, Percutaneous Approach (ICD-10-PCS; principal; 2023-08-17)
PROC: 4A133R1 Monitoring of Arterial Saturation, Peripheral, Percutaneous Approach (ICD-10-PCS; 2023-08-17)
PROC: 3E03329 Introduction of Other Anti-infective into Peripheral Vein, Percutaneous Approach (ICD-10-PCS; 2023-08-17)
PROC: 5A1955Z Respiratory Ventilation, Greater than 96 Consecutive Hours (ICD-10-PCS; 2023-08-18)
PROC: 0BH17EZ Insertion of Endotracheal Airway into Trachea, Via Natural or Artificial Opening (ICD-10-PCS; 2023-08-18)
PROC: 3E033XZ Introduction of Vasopressor into Peripheral Vein, Percutaneous Approach (ICD-10-PCS; 2023-08-18)
PROC: 0B110F4 Bypass Trachea to Cutaneous with Tracheostomy Device, Open Approach (ICD-10-PCS; 2023-08-25)
PROC: 0DH63UZ Insertion of Feeding Device into Stomach, Percutaneous Approach (ICD-10-PCS; 2023-08-25)
PROC: 0DJ08ZZ Inspection of Upper Intestinal Tract, Via Natural or Artificial Opening Endoscopic (ICD-10-PCS; 2023-08-25)
PROC: 0T2BX0Z Change Drainage Device in Bladder, External Approach (ICD-10-PCS; 2023-08-26)
DX: A41.9 Sepsis, unspecified organism (principal); J18.9 Pneumonia, unspecified organism; J69.0 Pneumonitis due to inhalation of food and vomit; J96.01 Acute respiratory failure with hypoxia; I69.351 Hemiplegia and hemiparesis following cerebral infarction affecting right dominant side; N17.9 Acute kidney failure, unspecified; E87.20 Acidosis, unspecified; J90 Pleural effusion, not elsewhere classified; E87.0 Hyperosmolality and hypernatremia; Z99.11 Dependence on respirator [ventilator] status; E78.5 Hyperlipidemia, unspecified; R65.20 Severe sepsis without septic shock; E87.5 Hyperkalemia; I12.9 Hypertensive chronic kidney disease with stage 1 through stage 4 chronic kidney disease, or unspecified chronic kidney disease; N18.30 Chronic kidney disease, stage 3 unspecified; K21.9 Gastro-esophageal reflux disease without esophagitis; N40.0 Benign prostatic hyperplasia without lower urinary tract symptoms; E86.9 Volume depletion, unspecified; K14.8 Other diseases of tongue; D63.8 Anemia in other chronic diseases classified elsewhere; I69.320 Aphasia following cerebral infarction; Z88.8 Allergy status to other drugs, medicaments and biological substances; Z88.0 Allergy status to penicillin; Z88.2 Allergy status to sulfonamides; Z79.899 Other long term (current) drug therapy; Z79.2 Long term (current) use of antibiotics; Z79.1 Long term (current) use of non-steroidal anti-inflammatories (NSAID); Z79.02 Long term (current) use of antithrombotics/antiplatelets; Z51.5 Encounter for palliative care; Z93.59 Other cystostomy status; Z74.01 Bed confinement status; I95.9 Hypotension, unspecified; Z55.6 Problems related to health literacy
CPT/HCPCS: 36415; 36416; 36600; 51702; 71045; 80048; 80053; 80202; 81001; 82805; 83605; 83735; 83880; 84484; 85025; 86850; 86900; 86901; 87040; 87070; 87077; 87081; 87086; 87186; 87205; 87324; 87449; 87505; 89220; 93005; 93010; 94002; 94003; 94640; 96374; 96375; 97139; A6258; C1713; C1752; C9113; J0171; J0612; J0665; J0690; J0692; J1642; J1644; J1650; J1815; J1940; J2001; J2405; J2704; J3010; J3370; J3490; J7030; J7050; J7070; J7620; J7999; S0028